=== PATIENT | female | born 1950 | race Caucasian/White ===

== ENCOUNTER → 2017-03-15 | Outpatient (CLI) | payer OTHER | LOC: FIMAGING 15:01 | PROVIDERS: ATTEND Family Medicine | DX: M79.605 Pain in left leg (principal) ==

== ENCOUNTER → 2017-03-18 | Outpatient (CLI) | payer OTHER | LOC: CIMAGING 14:39 | PROVIDERS: ATTEND Family Medicine | DX: R05 Cough (principal) | CPT/HCPCS: 71020-PO; 86618-90; 86698-90 ==

== ENCOUNTER 2017-04-01 09:01 | Observation (INO) | payer OTHER ==
--- NOTE | 2017-04-01 09:58 | CPEKG ---
Heart Rate: 85 RR Interval: 706 P-R Interval: 192 QRSD Interval: 100 QT Interval: 396 QTC Interval: 471 P [place]: 21 QRS [place]: -47 T Wave [place]: -12 EKG Severity - ABNORMAL ECG - EKG Impression: SINUS RHYTHM EKG Impression: PROBABLE INFERIOR INFARCT, AGE INDETERMINATE EKG Impression: ABNRM R PROG, CONSIDER ASMI OR LEAD PLACEMENT Electronically Signed By: Migdalia Cox 01-Apr-2017 10:11:43
[2017-04-01] MEDS ORDERED: ASPIRIN 81 MG CHEWABLE TAB PO ONE (10:05)
--- NOTE | 2017-04-01 10:11 | EDPHY ---
H & P Stated Complaint: left arm feels heavy, nausea Time Seen by Provider: 04/01/17 09:32 HPI/ROS: CHIEF COMPLAINT: Left arm pain History by patient HISTORY OF PRESENT ILLNESS: 67-year-old woman presents with several weeks of vague symptoms of feeling "like my vessels are santiago" and worried about her cholesterol being high. She has had lots of fatigue, episodes of heat intolerance and an episode of nausea last night and then this morning after being awake for about an hour she developed a heavy squeezing pain in her left arm. This did not involve her chest. There is no associated shortness of breath. She took a baby aspirin and she still has some mild symptoms. Patient states that she has been feeling poorly for about a month and that her symptoms are intermittent but not necessarily exertional. She often feels better after having a bowel movement. She has had an extensive lab workup by her primary care physician involving a chest x-ray and an ultrasound of her left lower extremity because she was having swelling in that leg. She has never been a smoker. She has a history of high triglycerides. She is obese. She has history of elevated blood pressure. Her father had angioplasty in his 70s. REVIEW OF SYSTEMS: As in HPI, and all other systems reviewed and are negative Source: Patient - Medical/Surgical History Hx Asthma: No Hx Chronic Respiratory Disease: No Hx Diabetes: No Hx Cardiac Disease: No Hx Renal Disease: No Hx Cirrhosis: No Hx Alcoholism: No Hx HIV/AIDS: No Hx Splenectomy or Spleen Trauma: No Other PMH: hysterectomy, fibromyalgia, hyperthyroidism - Family History Significant Family History: Heart disease - Social History Smoking Status: Never smoked - Physical Exam Exam: General Appearance: Alert, morbidly obese, nontoxic-appearing. Eyes: Pupils equal and round no pallor or injection. ENT, Mouth: Mucous membranes moist. Respiratory: Normal, effort, lungs are clear to auscultation. No wheezes, rales or rhonchi. Cardiovascular: Regular rate and rhythm. S1, S2, no murmurs, gallops, rubs appreciated Gastrointestinal: Abdomen is soft and nontender, no masses, bowel sounds normal. Back: No CVA tenderness, no bony tenderness Neurological: Awake, alert and oriented x 3, no pronator drift, normal gait, no pronator drift Skin: Warm and dry, no rashes. Musculoskeletal: Neck is supple nontender. No deformities. Extremitie:s full range of motion, no edema, multiple varicose veins left leg, DP pulses 2+ and equal bilaterally, PT pulses 2+ and equal bilaterally Psychiatric: Patient has slightly flat affect, there is no agitation. Constitutional: Initial Vital Signs Temperature (C) 36.7 C 04/01/17 09:09 Heart Rate 99 04/01/17 09:09 Respiratory Rate 16 04/01/17 09:09 Blood Pressure 158/86 H 04/01/17 09:09 O2 Sat (%) 96 04/01/17 09:09 O2 Delivery Mode Room Air Allergies/Adverse Reactions: codeine Allergy (Verified 04/01/17 09:12) Home Medications: Medication Instructions Recorded Naproxen 11/16/14 Synthroid 11/16/14 Medical Decision Making - Diagnostics EKG Interpretation: Normal sinus rhythm at a rate of 85 with normal axis, normal intervals, Q-waves in the inferior leads and poor R-wave progression and nonspecific ST changes but no evidence of acute ischemia. There is no old EKG available for comparison. Imaging Results: Imaging Impressions Chest X-Ray 04/01/17 10:06 Impression: Mild cardiac silhouette enlargement, with no evidence of congestive heart failure or focal infiltrate. ED Course/Re-evaluation: 67-year-old woman presents with left arm pain and squeezing feeling as well as several weeks of various nonspecific symptoms. Initially on arrival here she was having some arm pain. She was given an aspirin. Her symptoms resolved. Her blood pressure is noted to be elevated she has multiple cardiac risk factors. ECG was done which showed sinus rhythm a rate 85 with normal axis and Q-waves in the inferior and anterior leads concerning for prior [place]. There is no old EKG for ex comparison. First troponin was negative less ruling out acute ischemia. Given her multiple risk factors her vague symptoms and abnormal EKG she will be admitted to the main hospital for further evaluation and treatment. I discussed the case with Sonam, on-call for the hospitalist who accepts the patient for admission to the PCU under Dr. Avila. Patient understands and is agreeable to this plan. - Data Points Laboratory Results: Laboratory Results 04/01/17 11:15 04/01/17 11:50 04/01/17 04/01/17 04/01/17 11:50 11:15 11:15 WBC 5.67 10^3/uL 10^3/uL (3.80-9.50) RBC 5.15 10^6/uL 10^6/uL (4.18-5.33) Hgb 17.0 g/dL H g/dL (12.6-16.3) Hct 48.4 % H % (38.0-47.0) MCV 94.0 fL fL (81.5-99.8) MCH 33.0 pg pg (27.9-34.1) MCHC 35.1 g/dL g/dL (32.4-36.7) RDW 12.2 % % (11.5-15.2) Plt Count 196 10^3/uL 10^3/uL (150-400) MPV 9.4 fL fL (8.7-11.7) Neut % (Auto) 48.9 % % (39.3-74.2) Lymph % (Auto) 42.0 % % (15.0-45.0) [place] % (Auto) 6.7 % % (4.5-13.0) Eos % (Auto) 1.1 % % (0.6-7.6) Baso % (Auto) 0.9 % % (0.3-1.7) Nucleat RBC Rel Count 0.0 % % (0.0-0.2) Absolute Neuts (auto) 2.78 10^3/uL 10^3/uL (1.70-6.50) Absolute Lymphs (auto) 2.38 10^3/uL 10^3/uL (1.00-3.00) Absolute Monos (auto) 0.38 10^3/uL 10^3/uL (0.30-0.80) Absolute Eos (auto) 0.06 10^3/uL 10^3/uL (0.03-0.40) Absolute Basos (auto) 0.05 10^3/uL 10^3/uL (0.02-0.10) Absolute Nucleated RBC 0.00 10^3/uL 10^3/uL (0-0.01) Immature Gran % 0.4 % % (0.0-1.1) Immature Gran # 0.02 10^3/uL 10^3/uL (0.00-0.10) Sodium 141 mEq/L mEq/L REJ (134-144) Potassium 4.1 mEq/L mEq/L REJ (3.5-5.2) Chloride 106 mEq/L mEq/L REJ (97-110) Carbon Dioxide 23 mEq/l mEq/l REJ (22-31) Anion Gap 12 mEq/L mEq/L REJ (8-16) BUN 14 mg/dL mg/dL REJ (7-23) Creatinine 0.6 mg/dL mg/dL REJ (0.6-1.0) Estimated GFR > 60 REJ Glucose 105 mg/dL H mg/dL REJ (70-100) Calcium 9.6 mg/dL mg/dL REJ (8.5-10.4) Total Bilirubin 1.0 mg/dL mg/dL (0.1-1.4) AST 41 IU/L IU/L (14-46) ALT 61 IU/L H IU/L (9-52) Alkaline Phosphatase 83 IU/L IU/L (38-126) Troponin I < 0.012 ng/mL ng/mL REJ (0-0.034) Total Protein 6.8 g/dL g/dL (6.3-8.2) Albumin 4.3 g/dL g/dL (3.5-5.0) Medications Given: Discontinued Medications Aspirin (Aspirin) 324 mg PO EDNOW ONE Stop: 04/01/17 10:06 Last Admin: 04/01/17 10:12 Dose: 180 mg Sodium Chloride (Ns) 1,000 mls @ 0 mls/hr IV ONCE ONE PRN Reason: Wide Open Stop: 04/01/17 11:28 Last Admin: 04/01/17 11:31 Dose: 1,000 mls Departure - Departure Condition: Good Referrals: Rick Vincent MD [Primary Care Provider] - As per Instructions
[2017-04-01 11:22] LABS: % IMMATURE GRANULYOCYTES 0.4 % (0.0-1.1); ABSOLUTE IMMATURE GRANULOCYTES 0.02 10^3/uL (0.00-0.10); ADD DIFF? NO; ADD MORPH? NO; ADD SCAN? NO; ATYPICAL LYMPHOCYTE FLAG 0 (0-99); FRAGMENT RBC FLAG 0 (0-99); HEMATOCRIT 48.4 % (38.0-47.0); LEFT SHIFT FLG 0 (0-99); LIPEMIA HEMOLYSIS FLAG 90 (0-99); MEAN CELL HEMOGLOBIN CONCENTR. 35.1 g/dL (32.4-36.7); MEAN PLATELET VOLUME 9.4 fL (8.7-11.7); PLATELET CLUMPS FLAG 10 (0-99); PLATELET COUNT 196 10^3/uL (150-400); RED BLOOD CELL COUNT 5.15 10^6/uL (4.18-5.33); RED CELL DISTRIBUTION WIDTH 12.2 % (11.5-15.2)
[2017-04-01] MEDS ORDERED: NS 1,000 ML IV ONE (11:27)
[2017-04-01 12:20] LABS: ALANINE AMINOTRANSFERASE 61 IU/L (9-52); ALBUMIN 4.3 g/dL (3.5-5.0); ALKALINE PHOSPHATASE 83 IU/L (38-126); ANION GAP 12 mEq/L (8-16); ASPARTATE AMINOTRANSFERASE 41 IU/L (14-46); CALCIUM 9.6 mg/dL (8.5-10.4); CARBON DIOXIDE 23 mEq/l (22-31); CHLORIDE 106 mEq/L (97-110); CREATININE 0.6 mg/dL (0.6-1.0); GLOMERULAR FILTRATION RATE > 60; GLUCOSE 105 mg/dL (70-100); POTASSIUM 4.1 mEq/L (3.5-5.2); SODIUM 141 mEq/L (134-144); TOTAL PROTEIN 6.8 g/dL (6.3-8.2)
[2017-04-01 12:35] LABS: TROPONIN I < 0.012 ng/mL (0-0.034)
[2017-04-01] MEDS ORDERED: PROMETHAZINE HCL 25 MG TAB PO PRN (14:25)
[2017-04-01] MEDS ORDERED: ACETAMINOPHEN 325 MG TAB PO PRN (14:25)
[2017-04-01] MEDS ORDERED: ONDANSETRON 4 MG/2 ML VIAL IVP PRN (14:25)
[2017-04-01] MEDS ORDERED: ONDANSETRON DISINTEGRATING 4 MG TAB PO PRN (14:25)
[2017-04-01] MEDS ORDERED: PROMETHAZINE HCL 25 MG/ML INJ IVP PRN (14:25)
[2017-04-01] MEDS ORDERED: CYCLOBENZAPRINE PO PRN (17:30)
[2017-04-01] MEDS ORDERED: CLOBETASOL 0.05% 15 GM CRTUBE TP SCH (17:30)
--- NOTE | 2017-04-01 17:34 | PDGENHP ---
History and Physical - Chief Complaint Acute arm pain - History of Present Illness primary care provider: Dr. Rick Vincent HPI: 67-year-old female presents with acute arm pain located in the lateral left arm with associated shoulder discomfort, generalized fatigue, heat intolerance, nausea, intermittent left lower extremity and bilateral axillary edema. Patient reports onset of the actual pain was on the day prior to presentation and it has been characterized as squeezing and duration persistent thereafter. She did receive aspirin in the emergency department and the pain has been somewhat alleviated. the other symptoms including her fatigue been present since early spring when the patient experienced what she describes as a viral-like illness lasting approximately 5 weeks. After that experience, the patient reports that her exercise tolerance was significantly reduced, she began experiencing worsening intermittent edema and fullness in her left lower extremity, and then her heat intolerance began this summer. She is seen her primary care provider 3 times for these issues lower extremity ultrasound was ordered which demonstrated no deep venous thrombosis. History Information - Allergies/Home Medication List Allergies/Adverse Reactions: codeine Allergy (Verified 04/01/17 09:12) Home Medications: Levothyroxine [Synthroid 88 mcg (*)] 88 mcg PO DAILY23 11/16/14 [Last Taken 12/13] Naproxen Sodium [Aleve 220 MG (*)] 220 mg PO DAILY PRN 11/16/14 [Last Taken 11/12] Clobetasol 0.05% [Temovate Cream] 15 ania TP Q21D 04/01/17 [Last Taken 03/31/17] Cyclobenzaprine [Cyclobenzaprine HCl] 1 tab PO DAILY PRN 04/01/17 [Last Taken 3 Weeks Ago] Famotidine [Pepcid 20 MG (*)] 20 mg PO DAILY 04/01/17 [Last Taken 03/31/17] Herbals/Supplements -Info Only 1 ea PO DAILY 04/01/17 [Last Taken 03/31/17] I have personally reviewed and updated: family history, medical history, social history, surgical history - Past Medical History hypertension Additional medical history: Fibromyalgia which manifested as fatigue and swelling. Hypothyroidism. Hypertriglyceridemia. Obesity - Surgical History Reports: hysterectomy - Family History Additional family history: father with coronary artery disease at age 70 - Social History Smoking Status: Never smoked Alcohol Use: None Drug Use: None Additional social history: she is independent in her ADLs comma exercise tolerance has been reduced recently, she has not experienced any arm pain when she ambulates up stairs Review of Systems ROS: 10pt was reviewed & negative except for what was stated in HPI & below Constitutional: Reports: malaise, weakness Gastrointestinal: Reports: nausea Muscolosketal: Reports: other ( arm pain) Physical Exam Temp Pulse Resp BP Pulse Ox 36.9 C 91 17 153/96 H 93 04/01/17 17:22 04/01/17 17:22 04/01/17 17:22 04/01/17 17:22 04/01/17 17:22 Constitutional: no apparent distress, chronically ill appearing, obese, No uncomfortable Eyes: PERRL, anicteric sclera, EOMI Ears, Nose, Mouth, Throat: moist mucous membranes, hearing normal, ears appear normal, no oral mucosal ulcers Cardiovascular: regular rate and rhythym, systolic murmur ( 1/6 systolic murmur at the sternum), No tachycardia, No edema Respiratory: no respiratory distress, no rales or rhonchi, clear to auscultation Gastrointestinal: normoactive bowel sounds, soft, non-tender abdomen, no palpable masses, distension ( morbidly obese) Skin: other ( dry, no rash on upper chest) Musculoskeletal: other ( full range of motion left upper extremity with minimal pain elicited in the shoulder with active range of motion, mild tenderness to palpation over the left triceps muscle, full range of motion left elbow and left wrist without any pain) Neurologic: AAOx3, sensation intact bilaterally, No weakness Psychiatric: interacting appropriately, not anxious, not encephalopathic, thought process linear Lab Data & Imaging Review 04/01/17 11:15 04/01/17 11:50 WBC 5.67 10^3/uL (3.80-9.50) 04/01/17 11:15 RBC 5.15 10^6/uL (4.18-5.33) 04/01/17 11:15 Hgb 17.0 g/dL (12.6-16.3) H 04/01/17 11:15 Hct 48.4 % (38.0-47.0) H 04/01/17 11:15 MCV 94.0 fL (81.5-99.8) 04/01/17 11:15 MCH 33.0 pg (27.9-34.1) 04/01/17 11:15 MCHC 35.1 g/dL (32.4-36.7) 04/01/17 11:15 RDW 12.2 % (11.5-15.2) 04/01/17 11:15 Plt Count 196 10^3/uL (150-400) 04/01/17 11:15 MPV 9.4 fL (8.7-11.7) 04/01/17 11:15 Neut % (Auto) 48.9 % (39.3-74.2) 04/01/17 11:15 Lymph % (Auto) 42.0 % (15.0-45.0) 04/01/17 11:15 [place] % (Auto) 6.7 % (4.5-13.0) 04/01/17 11:15 Eos % (Auto) 1.1 % (0.6-7.6) 04/01/17 11:15 Baso % (Auto) 0.9 % (0.3-1.7) 04/01/17 11:15 Nucleat RBC Rel Count 0.0 % (0.0-0.2) 04/01/17 11:15 Absolute Neuts (auto) 2.78 10^3/uL (1.70-6.50) 04/01/17 11:15 Absolute Lymphs (auto) 2.38 10^3/uL (1.00-3.00) 04/01/17 11:15 Absolute Monos (auto) 0.38 10^3/uL (0.30-0.80) 04/01/17 11:15 Absolute Eos (auto) 0.06 10^3/uL (0.03-0.40) 04/01/17 11:15 Absolute Basos (auto) 0.05 10^3/uL (0.02-0.10) 04/01/17 11:15 Absolute Nucleated RBC 0.00 10^3/uL (0-0.01) 04/01/17 11:15 Immature Gran % 0.4 % (0.0-1.1) 04/01/17 11:15 Immature Gran # 0.02 10^3/uL (0.00-0.10) 04/01/17 11:15 D-Dimer 0.69 ug/mLFEU (0.00-0.50) H 04/01/17 11:50 Sodium 141 mEq/L (134-144) 04/01/17 11:50 Potassium 4.1 mEq/L (3.5-5.2) 04/01/17 11:50 Chloride 106 mEq/L (97-110) 04/01/17 11:50 Carbon Dioxide 23 mEq/l (22-31) 04/01/17 11:50 Anion Gap 12 mEq/L (8-16) 04/01/17 11:50 BUN 14 mg/dL (7-23) 04/01/17 11:50 Creatinine 0.6 mg/dL (0.6-1.0) 04/01/17 11:50 Estimated GFR > 60 04/01/17 11:50 Glucose 105 mg/dL (70-100) H 04/01/17 11:50 Calcium 9.6 mg/dL (8.5-10.4) 04/01/17 11:50 Total Bilirubin 1.0 mg/dL (0.1-1.4) 04/01/17 11:50 AST 41 IU/L (14-46) 04/01/17 11:50 ALT 61 IU/L (9-52) H 04/01/17 11:50 Alkaline Phosphatase 83 IU/L (38-126) 04/01/17 11:50 Troponin I < 0.012 ng/mL (0-0.034) 04/01/17 11:50 Total Protein 6.8 g/dL (6.3-8.2) 04/01/17 11:50 Albumin 4.3 g/dL (3.5-5.0) 04/01/17 11:50 TSH 0.527 uIU/mL (0.465-4.680) 04/01/17 11:50 Visualized and Interpreted Chest x-ray results: Yes Chest X-Ray results: no infiltrate Visualized and Interpreted EKG results: Yes EKG Interpretation: Positive for: other ( EKG demonstrating Q-wave inferiorly as well as V2 through V6 within normal sinus mechanism) Assessment & Plan Assessment: 67-year-old female presents with acute left arm pain in the setting of chronic fatigue an EKG abnormalities Plan: 1. Arm pain. Acute, new problem this provider, further workup indicated. Potential etiologies include pulmonary embolism, unstable angina equivalent, musculoskeletal cause, fibromyalgia. -my suspicion is the most likely etiology is either fibromyalgia or undiagnosed inflammatory myalgia, but given her morbid obesity, cardiac risk factors, and vague decline over the past 6 months will further investigate from a cardiopulmonary standpoint -D-dimer weakly positive, rule out pulmonary embolism with CT angiogram -get echocardiogram given diffuse Q-waves on EKG -get treadmill stress test in a.m. -repeat troponin level now -send CRP, ESR, CPK -send lipid panel, hemoglobin A1c -if all the above are unremarkable, would recommend the patient follow up with a road conductor as an outpatient for further treatment and receive nonsteroidal anti-inflammatory medications for discomfort in the interim 2. Morbid obesity. Most likely contributing to patient's overall deconditioning , the patient and I have discussed that weight loss and increased physical activity be helpful for her symptoms but she should have the above-mentioned cardiopulmonary evaluation prior to making this recommendation 3. Lower extremity edema. Chronic, secondary to varicose veins, outside records reviewed including 03/15/2017 ultrasound demonstrating no DVT Diet. Cardiac, NPO in a.m. Prophylaxis. High risk patient, Lovenox 40 Code. Full Disposition. Anticipated discharge is 04/02/2017, pending further workup as outlined above. I have discussed patient's presentation with Sonam Kong, hospitalist, she has signed out the patient to me for evaluation at the beginning of my shift.
[2017-04-01] MEDS ORDERED: CYCLOBENZAPRINE 10 MG TAB PO PRN (17:36)
[2017-04-01] MEDS: METOPROLOL TARTRATE 25 MG TAB PO SCH ×2 (17:39→22:01)
[2017-04-01 20:33] LABS: HEMOGLOBIN A1C 5.5 % (4.0-6.0)
[2017-04-01 20:33] LABS: HEMATOCRIT 49.3 % (38.0-47.0)
[2017-04-01] MEDS ORDERED: IOPAMIDOL (ISOVUE 370) 100 ML BTL IV ONE (20:45)
[2017-04-01 20:55] LABS: TROPONIN I < 0.012 ng/mL (0-0.034)
[2017-04-01] MEDS ORDERED: MELATONIN 3 MG TAB PO SCH (21:00)
[2017-04-01 21:16] LABS: C-REACTIVE PROTEIN < 5.0 mg/L (<10.0)
[2017-04-01] MEDS: ENOXAPARIN 100 MG/ML SYR SC SCH (22:01)
[2017-04-02] MEDS ORDERED: LEVOTHYROXINE 88 MCG TAB PO SCH
[2017-04-02 05:12] LABS: % IMMATURE GRANULYOCYTES 0.3 % (0.0-1.1); ABSOLUTE IMMATURE GRANULOCYTES 0.02 10^3/uL (0.00-0.10); ADD DIFF? NO; ADD MORPH? NO; ADD SCAN? NO; ATYPICAL LYMPHOCYTE FLAG 0 (0-99); FRAGMENT RBC FLAG 0 (0-99); HEMATOCRIT 44.2 % (38.0-47.0); HEMOGLOBIN 15.3 g/dL (12.6-16.3); LEFT SHIFT FLG 0 (0-99); LIPEMIA HEMOLYSIS FLAG 90 (0-99); MEAN CELL HEMOGLOBIN 33.2 pg (27.9-34.1); MEAN CELL HEMOGLOBIN CONCENTR. 34.6 g/dL (32.4-36.7); MEAN CELL VOLUME 95.9 fL (81.5-99.8); MEAN PLATELET VOLUME 9.5 fL (8.7-11.7); PLATELET CLUMPS FLAG 0 (0-99); PLATELET COUNT 198 10^3/uL (150-400); RED BLOOD CELL COUNT 4.61 10^6/uL (4.18-5.33); RED CELL DISTRIBUTION WIDTH 12.5 % (11.5-15.2)
[2017-04-02 05:32] LABS: ALANINE AMINOTRANSFERASE 56 IU/L (9-52); ALBUMIN 4.3 g/dL (3.5-5.0); ALKALINE PHOSPHATASE 75 IU/L (38-126); ANION GAP 11 mEq/L (8-16); ASPARTATE AMINOTRANSFERASE 41 IU/L (14-46); BILIRUBIN,TOTAL 1.2 mg/dL (0.1-1.4); CALCIUM 9.8 mg/dL (8.5-10.4); CARBON DIOXIDE 22 mEq/l (22-31); CHLORIDE 107 mEq/L (97-110); CHOLESTEROL 185 mg/dL (140-220); CHOLESTEROL/HDL RATIO 3.63 RATIO (1.00-4.44); CREATININE 0.6 mg/dL (0.6-1.0); GLOMERULAR FILTRATION RATE > 60; GLUCOSE 103 mg/dL (70-100); HIGH DENSITY LIPOPROTEIN 51 mg/dL (40-85); LDL/HDL RATIO 2.08 RATIO (1.00-3.22); LOW DENSITY LIPOPROTEIN 106 mg/dL (80-100); NON-HIGH DENSITY LIPOPROTEIN 134 mg/dL (90-129); SODIUM 140 mEq/L (134-144); TOTAL PROTEIN 6.8 g/dL (6.3-8.2); TRIGLYCERIDE 144 mg/dL (35-135); VERY LOW DENSITY LIPOPROTEINS 28 mg/dL (8-25)
[2017-04-02 05:43] LABS: TROPONIN I < 0.012 ng/mL (0-0.034)
[2017-04-02] MEDS ORDERED: Herbals/Supplements -Info Only PO SCH (09:00)
[2017-04-02] MEDS ORDERED: ENOXAPARIN 40 MG/0.4 ML SYR SC SCH (09:00)
[2017-04-02] MEDS ORDERED: FAMOTIDINE 20 MG TAB PO SCH (09:00)
[2017-04-02] MEDS ORDERED: ASPIRIN EC 325 MG TAB PO SCH (09:00)
[2017-04-02] MEDS: METOPROLOL TARTRATE 25 MG TAB PO SCH (10:08)
[2017-04-02] MEDS: ENOXAPARIN 100 MG/ML SYR SC SCH (10:09)
--- NOTE | 2017-04-02 13:59 | ECHO ---
[id number] + + [id number] : : [place] [address] : : [phone] + + Adult Echocardiographic Report + ------+ :Name: IVELISSE REINA Radha Date: 04/02/2017 07:28 AM : : Hospital Admission Number: [id number] Locatio n: 223: :: 1950 Gender: Female Height: 65 in : :Age: 67 yrs Race: WH Weight: 225 lb : :Reason For Study: Fatigue/eval for cardiomyopathy/PE : : BSA: 2.1 meters 2 : + ------+ MMode/2D Measurements \T\ Calculations IVSd: 1.1 cm LVIDd: 5.0 cm EDV(Teich): 118.9 ml Ao root diam: 3.5 cm LVPWd: 1.1 cm LA dimension: 4.2 cm Normal Measurement Values: + + :LVIDd (3.5-5.7cm) IVSd (0.6-1.1cm) LVPWd (0.6-1.1cm) Aortic Root (2.0-3.7cm)Left Atrium (1.5-4.0cm): :LV Vol(d) (76-115ml) LV Vol(s) (29-48ml) Ejec Fraction (50-65%)PV Abel (0.6- 1.2m/s) TV Abel (0.4-1.0m/s) : :MV E Abel (0.8-1.0m/s)MV A Abel (0.3-1.0m/s)LVOT Abel (0.7-1.2m/s) Asc Ao Abel ( 0.9-1.8m/s) : + + Doppler Measurements \T\ Calculations MV E max abel: 64.7 cm/sec Ao V2 max: 114.0 cm/sec MV A max abel: 92.3 cm/sec Ao max P.2 mmHg MV E/A: 0.70 Left Ventricle The left ventricle is normal in size. There is normal left ventricular wall thickness. Left ventricular systolic function is normal. Ejection Fraction = 60-65%. No regional wall motion abnormalities noted. Atria The left atrial size is normal. Right atrial size is normal. The interatrial septum is intact with no evidence for an atrial septal defect. Mitral Valve The mitral valve is normal in structure and function. There is no evidence of mitral valve prolapse. There is no mitral valve stenosis. Tricuspid Valve Normal tricuspid valve. There is trace tricuspid regurgitation. Aortic Valve The aortic valve opens well. There is no aortic stenosis. There is no aortic insufficiency. Pulmonic Valve The pulmonic valve is not well visualized. There is no pulmonic valvular regurgitation. Great Vessels The aortic root is normal size. Pericardium/Pleural There is no pericardial effusion. There is a fat pad seen. Conclusion A complete two-dimensional transthoracic echocardiogram was performed (2D, M-mode, Doppler and color flow Doppler). The study was technically difficult. Left ventricular systolic function is normal. Ejection Fraction = 60-65%. There is a fat pad seen. Final Reading Physician: Jesu Roger MD electronically signed on 04/02/2017 01:58 PM Ordering Physician: Kwadwo Maradiaga Performed By: Padmini Chaidez RDCS
[2017-04-02 14:40] VITALS: BP 130/80; PULSE 70; RESP 14; TEMP 97.6; O2SAT 92
--- NOTE | 2017-04-02 17:03 | GDS ---
[f rep st] DISCHARGE SUMMARY DISCHARGE DIAGNOSES: 1. Left triceps pain, most likely due to muscle strain. 2. Morbid obesity. 3. Chronic lower extremity edema from venous stasis and varicose veins. 4. Single subsegmental possible pulmonary embolism seen on CT angio of the chest. CONSULTANTS: None. HOSPITAL COURSE BY PROBLEM: Left posterior arm pain: The patient was admitted to the hospital due to concerns for acute coronary syndrome. Serial troponins were done that have been negative. Mike g the time of my exam, the patient's pain seems very atypical for cardiac chest pain. Her left delt oid is tender to palpation. She has had 3 negative troponins. Her pain is not exertional. During her workup, she did have an elevated D-dimer. Subsequently, a CT angio of the chest was done that s howed a single subsegmental left lower lobe possible pulmonary embolism. I do not think that this f inding is the cause for her pain. Per the most recent chest guidelines, I do not feel that needs to be treated with anticoagulation as long as she does not have a lower extremity deep venous thrombos is. At the time of this dictation, the lower extremity Doppler is pending. PHYSICAL EXAM: VITAL SIGNS: On the day of discharge, blood pressure 138/80, pulse is 70, respirato ry rate 14, O2 saturation 92% on room air. GENERAL: No acute distress. HEART: S1, S2. LUNGS: C lear. ABDOMEN: Soft. EXTREMITIES: The patient has tenderness to palpation over the left triceps. DIAGNOSTICS DONE THIS HOSPITAL STAY: Echocardiogram: Ejection fraction 60% to 65%. No significant valvular disease. CT angio of the chest, refer to report. Lower extremity Doppler study is pending. DISCHARGE MEDICATIONS: Please refer to discharge medication reconciliation [facility] for details. DISCHARGE INSTRUCTIONS: The patient will be discharged from the hospital, where she should follow u p with her primary care provider in the next week. It would not be unreasonable for her to have out patient stress test; however, I think the cause of this triceps pain is very unlikely to be cardiac. /[id number]/MODL
[2017-04-21] MEDS ORDERED: CLOBETASOL 0.05% 15 GM CRTUBE TP SCH (09:00)
== END 2017-04-02 16:57 | disposition home or self-care (01) ==
LOC: CED 09:01 → CEDHOLD 13:29 → F2W 16:30
PROVIDERS: ADMIT Internal Medicine; ATTEND Family Medicine
DX: M79.622 Pain in left upper arm (principal); R94.31 Abnormal electrocardiogram [ECG] [EKG]; R91.8 Other nonspecific abnormal finding of lung field; I83.90 Asymptomatic varicose veins of unspecified lower extremity; E66.01 Morbid (severe) obesity due to excess calories; E78.1 Pure hyperglyceridemia; R53.83 Other fatigue; M79.7 Fibromyalgia; R60.0 Localized edema; E03.9 Hypothyroidism, unspecified; Z82.49 Family history of ischemic heart disease and other diseases of the circulatory system; Z68.38 Body mass index [BMI] 38.0-38.9, adult
CPT/HCPCS: 71020; 71275; 93005; 93306; 93970; G0378; J1650; Q9967; 80048-PO; 80053-PO; 84443-PO; 84484-PO; 85025-PO; 85378-PO

== ENCOUNTER 2017-04-20 01:22 | Inpatient (IN) | payer OTHER ==
--- NOTE | 2017-04-20 01:26 | EDPHY ---
H & P Time Seen by Provider: 04/20/17 01:25 HPI/ROS: CHIEF COMPLAINT: discomfort due to fluid develop in the abdominal area HISTORY OF PRESENT ILLNESS: this 67-year-old female has had a difficult past few months with waxing waning symptoms that have been difficult for her PCP to characterize as well as leading to recent hospital admission some 2 weeks ago. At around 10:00 p.m. tonight some 4 hours after dinner she started having trouble. It was a area of discomfort in the lower abdomen both right and left, though right seemed to be more so probably some that was progressive over the ensuing 3-4 hours before she got here. 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 Evidently some 6 months ago while she had chronic venous insufficiency changes and varicosities of the left leg becoming larger intermittently with prior to that the legs being equal size. However over the last 2 months she has had episodes of left leg swelling only, however that is not every day. This has led her PCP at the end of February on the to have a study done which included a negative duplex scan of the left lower leg. At the same token when she was admitted for left arm discomfort this past April 02 she was found to have a positive D-dimer at 690 and subsequently had a subsegmental PE noted posteriorly vs scarring. At that time she has been admitted for left triceps pain and was found to have some palpable discomfort of this triceps area, thus it was not felt that the CT scan findings were jewelry sales representative or causative of the triceps pain. Furthermore she had an atypical history for coronary disease. Echocardiogram was normal at that admission, though had poor R-wave progression across precordium and Q-waves inferiorly which, up until the Echocardiogram, had a suggested old prior MIs. As to tonight, after the 10 o'clock onset of the moderate abdominal discomfort with the sense of abdominal swelling and the left leg swelling she attempted to fall asleep 11. She is in bed for about 45 minutes and could not fall asleep. Insomnia has been a recurrent problem for her in the 1st place. This achy, moderate pain did not radiate nor intensify, though it did persist. She did not try her ASA or Pepcid. It was not worse lying flat, nor improved with getting up. Furthermore, at around 8:00 p.m. she had a sense of moderate, right jaw discomfort which led later to bilateral jaw discomfort - this was a new problem for her. This remained in the jaw, did not radiate to the neck or chest or arms. It is distinctly better now than it was earlier, but continues at this point in time. She did not notice anything particular made it worse or better. She did not have any shortness of breath laying supine. Of note, is that she has been having decreased exercise tolerance over the last 2 months. There may have been some associated shortness of breath but no diaphoresis or nausea When she got out of bed at 0000, she noted an occipital JOSEPH, this too is mostly gone. Similar episode to this, complete with headache and mild jaw discomfort, about a week ago. Subsided spontaneously after an hour and a half. Episodically over the last few months she has been taking Pepcid for "heartburn ". Also noted decreased exercise tolerance. She was seen earlier on April 19 by her PCP for a 2 week follow-up status post hospitalization and was noted by her PCP to have abdominal tenderness and some discussion as to whether she had a gallbladder problem. An ultrasound is tentative for this coming Tuesday as there is prior authorization issues that need to be clarified. I reviewed the H&P as well as discharge summary from the April 01 admission. On the discharge summary that talk of doing a duplex scan of the left lower leg as a follow-up to the one on March 15. This was a negative bilateral study. PE risk factor-travel in early February via plane. Venous changes in the left leg, though chronic. Aortic dissection risk factors-none Cardiac risk factors include hypertension and obesity. Recently elevated triglycerides though cholesterol was okay. No family history of early-onset coronary disease. Nonsmoker. REVIEW OF SYSTEMS: Constitutional: No fever, no chills. Eyes: No discharge. ENT: No sore throat. Cardiovascular: No chest pain, no palpitations. Respiratory: No cough, shortness of breath, or wheezing. Gastrointestinal: No nausea vomiting or diarrhea. No abdominal pain. Genitourinary: No hematuria or frequency. Musculoskeletal: No back pain. No leg discomfort. Skin: No rashes. Neurological: No headache. 10 point ROS otherwise negative Source: Patient Exam Limitations: No limitations - Medical/Surgical History Hx Asthma: No Hx Chronic Respiratory Disease: No Hx Diabetes: No Hx Cardiac Disease: No Hx Renal Disease: No Hx Cirrhosis: No Hx Alcoholism: No Hx HIV/AIDS: No Hx Splenectomy or Spleen Trauma: No Other PMH: hysterectomy, fibromyalgia, hypothyroidism - Family History Significant Family History: No pertinent family hx (Father of congestive heart failure. Mother is currently alive in her late 80s) - Social History Smoking Status: Never smoked Alcohol Use: None Drug Use: None - Physical Exam Exam: General Appearance: Alert, no distress. Afebrile. Normal phonation. No respiratory distress. Obese. Eyes: Pupils equal and round no pallor or injection. No icterus ENT, Mouth: Mucous membranes moist. Pharynx without erythema or exudate. TM Clear. Neck: No adenopathy. Supple. No JVD. Trachea in midline. Respiratory: There are no retractions, lungs are clear to auscultation. Chest wall: Nontender to palpation. No crepitus. Cardiovascular: Regular rate and rhythm. Abdomen: Soft, large panniculus. There is tenderness present in the right upper quadrant when compared to left upper as well as right lower quadrants. The latter 2 are nontender. There are no masses, bowel sounds normal. Femoral pulses equal. Neurological: Ox3. No motor weakness. Sensation intact. Gait nl. Skin: Warm and dry, no rashes. Musculoskeletal: No joint swelling. Extremities: There is trace edema in the left lower leg compared to the right. The left lower leg girth is increased compared to the right. There is chronic venous insufficiency changes in chronic varicosities present left lower leg. Homans sign negative on the left though she is tender on the right to palpation of the gastroc area. No cords. Psychiatric: Normal affect. Constitutional: Initial Vital Signs Temperature (C) 36.9 C 04/20/17 01:36 Heart Rate 93 04/20/17 01:36 Respiratory Rate 16 04/20/17 01:36 Blood Pressure 175/100 H 04/20/17 01:36 O2 Sat (%) 96 04/20/17 01:36 O2 Delivery Mode Room Air Allergies/Adverse Reactions: codeine Allergy (Verified 04/20/17 01:34) Home Medications: Medication Instructions Recorded Cyclobenzaprine [Flexeril 10 MG 5 mg PO HS PRN 04/20/17 (*)] Fluconazole [Diflucan (*)] 150 mg PO ONCE PRN 04/20/17 Levothyroxine [Synthroid 88 mcg 88 mcg PO DAILY@04/20/17 (*)] Lisinopril [Zestril 5 mg (*)] 5 mg PO DAILY 04/20/17 guaiFENesin [Mucinex 600 MG (*)] 600 mg PO DAILY 04/20/17 Medical Decision Making - Diagnostics EKG Interpretation: EKG: Interpreted by me contemporaneously. Rhythm: Normal sinus rhythm. Heart rate 88, first-degree block QTc 460 QRS: normal STT segment: normal T Waves: Normal Q waves: There are Q-waves inferiorly and pre and F. Suspicious for old inferior OK. Poor progression across precordium. When compared to old EKG from April 01 this is unchanged. Summary: Normal Ekg EKG with findings suspicious for old prior inferior and anterior MIs. No acute ischemia. Single PVC noted Imaging Results: Imaging Impressions Abdomen CT 04/20/17 02:52 Impression: 1. Probable mesenteric lymphadenitis with peripancreatic and portacaval mild adenopathy and mesenteric stranding. 2. No CT evidence of appendicitis, abscess or bowel obstruction. 3. Small hiatal hernia. Findings and recommendations discussed with Emergency Department physician, Dr. Dmitry Flowers, at 0415 hours on April 20, 2017. Final report concurs with initial preliminary interpretation. Chest/Thorax CTA 04/20/17 02:52 Impression: 1. No definite acute pulmonary thromboemboli. 2. No acute pulmonary disease. 3. Small hiatal hernia. Findings and recommendations discussed with Emergency Department physician, Dr. Dmitry Flowers, at 0415 hours on April 20, 2017. Final report concurs with initial preliminary interpretation. Chest x-ray: Two view chest. Interpreted by me, contemporaneously.. Films reviewed by me on the PACS system. Normal mediastinum, except for that of a borderline enlarged heart. Normal lung burk. No effusions. Heart size is borderline enlarged. No CHF. CT scan of Abdomen & Pelvis. Performed with IV contrast. Interpreted by radiologist. Films reviewed by me. Findings as follows: Some mesenteric nodes, no pancreatic swelling per se as well as normal gallbladder. Normal appendix. CT of Chest with IV Contrast. Arterial study Interpreted by Radiologist and discussed with same. Films reviewed by me on the PACS. Findings as follows : No signs of acute or prior PE. Old scar noted on the left base. No acute findings.] Imaging: Discussed imaging studies w/ scallop binder Radiologist ED Course/Re-evaluation: Initial workup was started to review possibility of coronary disease versus PE versus gastric/gallbladder disease. Her lipase is normal making pancreatitis an unlikely possibility. As the troponin, which was a 6 hour troponin, was negative, we proceeded to a CTA of the chest with CT of the abdomen. Notably LFTs are normal. EKG was unchanged from April 01. While she does have R-wave progression problems and Q-waves in 3 and F, her echocardiogram on April 01, showed normal wall motion and normal ejection fraction. Chest x-ray showed borderline heart size however, no effusion or CHF. Laboratory results as follows: Normal white count normal hemoglobin Negative lipase Negative troponin, making cardiac disease less likely Negative sed rate. Thus temporal arteritis extremely likely. Given the recent imaging some 2 weeks ago suggestive of perhaps an intercurrent subsegmental PE, placing her at high risk, a CT scan was performed. Further, abdominal CT was also ordered for the right upper quadrant tenderness and discomfort as ultrasound the less diagnostic due to her obesity. CT reviewed with radiologist. No gallbladder disease noted. Normal appendix. Normal pancreas. Some scant nodes in the mesentery to suggest mesenteric adenitis but no signs of lymphoma. Furthermore, CT of the chest was negative. Case discussed with the on-call hospitalist. Given her heart score of 4 and the jaw discomfort, I recommended a stress test. The patient will be sent the ambulance to [facility]. She was given 162 mg of aspirin to make the total 324. Differential Diagnosis: Differential diagnosis includes but is not limited to the following: ACS, myocardial infarction, pneumothorax, pleurisy, pulmonary embolus, aortic dissection, anxiety, muscle strain. - Data Points Laboratory Results: Laboratory Results 04/20/17 02:10 04/20/17 02:10 Medications Given: Trazodone HCl (Trazodone) 50 mg PO HS TOMAS Stop: 10/17/17 20:59 Last Admin: 04/20/17 20:45 Dose: Not Given Discontinued Medications Aspirin (Aspirin) 162 mg PO EDNOW ONE Stop: 04/20/17 04:56 Last Admin: 04/20/17 05:57 Dose: 162 mg Sodium Chloride (Ns) 1,000 mls @ 0 mls/hr IV ONCE ONE PRN Reason: Wide Open Stop: 04/20/17 03:04 Last Admin: 04/20/17 03:04 Dose: 1,000 mls Departure - Departure Disposition: [facility] Acute Clinical Impression: ACS (acute coronary syndrome), Jaw discomfort Condition: Fair
--- NOTE | 2017-04-20 01:45 | CPEKG ---
Heart Rate: 88 RR Interval: 682 P-R Interval: 224 QRSD Interval: 90 QT Interval: 380 QTC Interval: 460 P Garfield: 43 QRS Garfield: -40 T Wave Garfield: 42 EKG Severity - ABNORMAL ECG - EKG Impression: SINUS RHYTHM EKG Impression: VENTRICULAR PREMATURE COMPLEX EKG Impression: FIRST DEGREE AV BLOCK EKG Impression: PROBABLE INFERIOR INFARCT, AGE INDETERMINATE EKG Impression: BORDERLINE R WAVE PROGRESSION, ANTERIOR LEADS EKG Impression: When compared to prior EKG this is essentially unchanged. Electronically Signed By: Dmitry Flowers 20-Apr-2017 03:05:10
[2017-04-20 02:18] LABS: % IMMATURE GRANULYOCYTES 0.1 % (0.0-1.1); ABSOLUTE IMMATURE GRANULOCYTES 0.01 10^3/uL (0.00-0.10); ADD DIFF? NO; ADD MORPH? NO; ADD SCAN? NO; ATYPICAL LYMPHOCYTE FLAG 0 (0-99); FRAGMENT RBC FLAG 0 (0-99); HEMATOCRIT 45.4 % (38.0-47.0); HEMOGLOBIN 15.7 g/dL (12.6-16.3); LEFT SHIFT FLG 0 (0-99); LIPEMIA HEMOLYSIS FLAG 90 (0-99); MEAN CELL HEMOGLOBIN 32.8 pg (27.9-34.1); MEAN CELL HEMOGLOBIN CONCENTR. 34.6 g/dL (32.4-36.7); MEAN CELL VOLUME 94.8 fL (81.5-99.8); PLATELET CLUMPS FLAG 0 (0-99); PLATELET COUNT 198 10^3/uL (150-400); RED BLOOD CELL COUNT 4.79 10^6/uL (4.18-5.33); RED CELL DISTRIBUTION WIDTH 12.4 % (11.5-15.2)
[2017-04-20 02:22] LABS: SEDIMENTATION RATE 7 MM/HR (0-30)
[2017-04-20 02:30] LABS: ALANINE AMINOTRANSFERASE 56 IU/L (9-52); ALBUMIN 4.3 g/dL (3.5-5.0); ALKALINE PHOSPHATASE 85 IU/L (38-126); ANION GAP 13 mEq/L (8-16); ASPARTATE AMINOTRANSFERASE 36 IU/L (14-46); BILIRUBIN,TOTAL 1.1 mg/dL (0.1-1.4); BILIRUBIN-CONJUGATED 0.4 mg/dL (0.0-0.5); BILIRUBIN-UNCONJUGATED 0.7 mg/dL (0.0-1.1); CALCIUM 9.6 mg/dL (8.5-10.4); CARBON DIOXIDE 24 mEq/l (22-31); CHLORIDE 100 mEq/L (97-110); CREATININE 0.6 mg/dL (0.6-1.0); GLOMERULAR FILTRATION RATE > 60; GLUCOSE 110 mg/dL (70-100); MAGNESIUM 1.9 mg/dL (1.6-2.3); POTASSIUM 3.9 mEq/L (3.5-5.2); SODIUM 137 mEq/L (134-144); TOTAL PROTEIN 7.1 g/dL (6.3-8.2)
[2017-04-20 02:41] LABS: TROPONIN I < 0.012 ng/mL (0.000-0.034)
[2017-04-20] MEDS ORDERED: NS 1,000 ML IV SCH (03:00)
[2017-04-20] MEDS ORDERED: NS 1,000 ML IV ONE (03:03)
[2017-04-20] MEDS ORDERED: IOPAMIDOL (ISOVUE 370) 100 ML BTL IV ONE (03:12)
[2017-04-20 03:26] LABS: COLOR YELLOW; LEUKOCYTE ESTERASE,URINE TRACE (NEGATIVE); NITRITE,URINE NEGATIVE (NEGATIVE); PH,URINE 5.5 (5.0-7.5)
[2017-04-20 03:36] LABS: RBC,URINE NONE SEEN /hpf (0-3); WBC,URINE 0-1 /hpf (0-3)
[2017-04-20] MEDS ORDERED: ASPIRIN 81 MG CHEWABLE TAB PO ONE (04:55)
[2017-04-20] MEDS ORDERED: ONDANSETRON 4 MG/2 ML VIAL IVP PRN (11:15)
[2017-04-20] MEDS ORDERED: CYCLOBENZAPRINE 10 MG TAB PO PRN (11:15)
[2017-04-20] MEDS ORDERED: ZOLPIDEM TARTRATE 5 MG TAB PO PRN (11:15)
[2017-04-20] MEDS ORDERED: ACETAMINOPHEN 325 MG TAB PO PRN (11:15)
[2017-04-20] MEDS ORDERED: hydrALAZINE 20 MG/ML VIAL IVP PRN (11:20)
--- NOTE | 2017-04-20 12:27 | GHP ---
[f rep st] HISTORY AND PHYSICAL DATE OF ADMISSION: 04/20/2017 CHIEF COMPLAINT: Jaw pain. Right upper quadrant pain. Multiple other complaints. HISTORY: Yue Ryan is a 67-year-old female, who was just discharged from our hospital 04/02, wh ere she was found to have a single subsegmental possible PE, but her lower extremity Dopplers were n egative and she was not given anticoagulation. She now re-presents to the hospital complaining of j aw discomfort. This was acute onset last night. Very severe. She felt short of breath and dizzy, and felt an impending sense of doom, so she came to the emergency room. She also complains of incre asing abdominal distention and stated when she looked in the mirror her abdomen was massive despite having lots of recent bowel movements and urination. She describes right upper quadrant and bilater al lower quadrant abdominal pain. She saw her primary care doctor yesterday who palpated her right upper quadrant and was able to elicit exquisite right upper quadrant pain and he was attempting to w orkup her gallbladder as an outpatient. She has left leg edema due to varicose veins that is up and down and no change from its usual pattern. She also complains of severe lightheadedness that cause word-finding difficulties and shaking chills. She could barely speak to the ER physician she was s o uncomfortable. She also feels like her whole system is in overdrive. She has not slept for 2 wee ks. She feels like her heart is racing. She feels like she is in a constant adrenergic state. Prieto lan she was in the hospital earlier this month she was given metoprolol while inpatient but then disc harged with a prescription for lisinopril. She states while in the hospital on metoprolol she felt great, but on the lisinopril she does not have the same benefit. PAST MEDICAL HISTORY: 1. Obesity. 2. Chronic venous stasis, specifically varicose veins of the left leg. This has been ultrasounded for DVT many times and has been negative. 3. Chronic PE which did not receive anticoagulation. 4. Fibromyalgia. 5. Recently diagnosed gluten sensitivity rash by her arterial embalmer. She has never had an EGD or co lonoscopy. PAST SURGICAL HISTORY: Hysterectomy. MEDICATIONS: Please see computer record for full detailed list. ALLERGIES: Codeine. SOCIAL HISTORY: No smoking. No alcohol. She lives alone. REVIEW OF SYSTEMS: Complete review of systems obtained. Review of systems negative regarding const itutional, HEENT, GI, pulmonary, cardiovascular, , hematology, skin, musculoskeletal, endocrine, p sych except for positives and negatives as in HPI. FAMILY HISTORY: Father had coronary artery disease in his 70s. Her mother is still alive. PHYSICAL EXAMINATION: GENERAL: Well-developed, well-nourished female in no acute distress. VITAL SIGNS: Temperature is 37.5, pulse 96, blood pressure 151/102, satting 95% on room air. HEENT: Eye examination is normal conjunctiva. Pupils react to light. ENT normal. Hearing intact. Normal te eth. Oropharynx moist. NECK: Trachea midline. No thyromegaly. CHEST: Normal respiratory effort . LUNGS: Clear to auscultation bilaterally. CARDIOVASCULAR: Regular rate and rhythm. No murmur. EXTREMITIES: Left lower extremity edema with varicose veins. No right edema. ABDOMEN: Soft, di stended. Very tender to right upper quadrant. No hepatosplenomegaly. SKIN: Warm, dry, intact wit h minimal rash. MUSCULOSKELETAL: No cyanosis or clubbing. Strength 5/5 upper and lower extremitie s. NEURO: Cranial nerves intact. Normal sensation light touch. PSYCHIATRIC: Alert and oriented x3. Normal affect. Normal judgment and insight. Normal memory. LABORATORY DATA: White count 6.82, hematocrit 45.4, platelets 198. Sodium 137, potassium 3.9, chlo ride 100, bicarb 24, BUN 12, creatinine 0.6, glucose 110. LFTs are normal. Troponin negative x2. Urinalysis is negative. EKG reviewed by me and my personal interpretation is normal sinus rhythm, s ome diffuse T-wave flattening. Chest x-ray is negative. Echocardiogram shows an ejection fraction of 60%. MEDICAL RECORD REVIEW: I reviewed her hospitalization from earlier this month. Decision was made n ot to anticoagulate for this possible pulmonary embolus as it was not convincing. Ultrasound of the legs were negative. Echo was normal as above. ASSESSMENT/PLAN: 1. Jaw pain. Will rule out ischemia. Will follow serial troponins and EKGs. Will order Lexiscan stress test for morning. 2. Right upper quadrant pain. Will check an abdominal ultrasound. 3. Gluten sensitivity rash. This was diagnosed by her current arterial embalmer. Given her associated GI symptoms, she should probably have an EGD and colonoscopy which she has never had in the past. 4. Chronic pulmonary embolus. There does not appear to be anything acute on her repeat CT scan don e today in the emergency room. Left lower extremity ultrasounds have been negative for DVT. Will c ontinue to hold off on anticoagulation. 5. Insomnia. Will give a trial of trazodone tonight. 6. Hypertension. Will hold her lisinopril. This hypertension seems to be of relatively new onset and corresponds with her symptoms of hyperadrenergic spells. If the remainder of her workup remains unremarkable, could consider a 24 hour urine for fractionated catecholamines and metanephrines whic h would be the initial screening test for pheochromocytoma in someone who is a relatively low risk p atient. She felt much better on the metoprolol and so would probably change her blood pressure medi cations to a beta madison at discharge. CODE STATUS: Full. ADMISSION STATUS: Will admit to observation. Possible discharge home tomorrow depending on clinica l course. DVT PROPHYLAXIS: She is high risk. I will place her on subcu Lovenox. /[id number]/MODL
[2017-04-20] MEDS ORDERED: traZODone 50 MG TAB PO SCH (21:00)
[2017-04-21] MEDS: LEVOTHYROXINE 88 MCG TAB PO SCH ×2 (05:50→07:10)
[2017-04-21 07:29] LABS: CHOLESTEROL 146 mg/dL (140-220); CHOLESTEROL/HDL RATIO 3.56 RATIO (1.00-4.44); HIGH DENSITY LIPOPROTEIN 41 mg/dL (40-85); LDL/HDL RATIO 2.07 RATIO (1.00-3.22); LOW DENSITY LIPOPROTEIN 85 mg/dL (80-100); NON-HIGH DENSITY LIPOPROTEIN 105 mg/dL (90-129); TRIGLYCERIDE 103 mg/dL (35-135); VERY LOW DENSITY LIPOPROTEINS 20 mg/dL (8-25)
[2017-04-21] MEDS: ENOXAPARIN 40 MG/0.4 ML SYR SC SCH (07:45)
[2017-04-21] MEDS: guaiFENesin 600 MG TAB.ER PO SCH (07:45)
[2017-04-21] MEDS: ASPIRIN EC 81 MG TAB PO SCH (07:45)
[2017-04-21] MEDS ORDERED: REGADENOSON 0.4 MG/5 ML SYR IVP ONE (09:39)
--- NOTE | 2017-04-21 09:57 | CPEKG ---
Heart Rate: 73 RR Interval: 822 P-R Interval: 204 QRSD Interval: 94 QT Interval: 400 QTC Interval: 441 P Fletcher: 61 QRS Fletcher: -4 T Wave Fletcher: 22 EKG Severity - BORDERLINE ECG - EKG Impression: SINUS RHYTHM EKG Impression: BORDERLINE T ABNORMALITIES, ANTERIOR LEADS Electronically Signed By: Cliff Kearns 21-Apr-2017 16:09:30
--- NOTE | 2017-04-21 11:05 | CPR ---
[f rep st] NONINVASIVE CARDIAC PROCEDURE REPORT PROCEDURE: Injection of Lexiscan MPI study. SUPERVISING AD TRAFFICKER: Dr. Kwadwo Woods, INDICATION FOR STRESS LEXISCAN MPI STUDY: The patient with episodes of chest pressure and jaw pain. Abnormal electrocardiogram. Unable to run on treadmill. PRE: After obtaining informed consent, the patient was placed on 12-lead electrocardiogram. Initia l EKG showing sinus rhythm, leftward axis deviation, nonspecific T-wave abnormalities in variable le ads. Patient denies any chest pain, shortness of breath, jaw pain, or symptoms suggesting of ischem ia. Blood pressure 120/80, saturation 94%. INJECTION: Patient was given Lexiscan slow IV push followed by nuclear isotope, did note after 1 mi nute of injection heart rate did increase to 93, patient did report some mild shortness of breath, b ut no chest pressure or pain or symptoms suggesting of ischemia, no significant EKG changes noted. Within 5 minutes, patient reported all symptoms subsided, heart rate returned down to 86 beats per m inute, and again, no EKG changes. Blood pressure 122/80, saturation 95%, vital signs stable. Zuleika cervantes is finishing stress MPI imaging in Nuclear Medicine at this time. IMPRESSION: 67-year-old female admitted with mild chest pressure with jaw pain, being evaluated for cardiac ischemia, noted to have abnormal electrocardiogram. No significant EKG changes noted with Lexiscan injection, reporting mild shortness of breath 1 minute post injection which subsided within 5 minutes, vital signs remained stable. MPI imaging results pending. /[id number]/MODL
--- NOTE | 2017-04-21 14:26 | SOAPPROG ---
[facility] Progress Note Assessment/Plan: Assessment/Plan: Pt seen and examined. chart reviewed. full note to follow agree with HIDA and cardiology consultation I will defer to primary service to order HIDA so as not to interfere with cardiac w/u 04/21/17 14:24 Objective: Vital Signs Temp Pulse Resp BP Pulse Ox 36.6 C 75 18 141/69 H 94 04/21/17 10:56 04/21/17 10:56 04/21/17 10:56 04/21/17 10:56 04/21/17 10:56 04/20/17 04/21/17 04/22/17 05:59 05:59 05:59 Intake Total 3600 Balance 3600 ICD10 Worksheet Patient Problems: Problems Problem Status Onset ACS (acute coronary syndrome) Acute Arm pain, lateral Acute
--- NOTE | 2017-04-21 16:17 | HOSPPROG ---
Hospitalist Progress Note Assessment/Plan: * Jaw pain -possible abnormality on stress test -d/w [facility] cardiology - they will consult -consider cardiac cath * Gallstones with RUQ pain -d/w Dr. Martin -check HIDA scan * HTN -holding lisinopril -she preferred metoprolol * Possible gluten sensitivity rash -given her GI complaints, recommend outpatient EGD/colonoscopy -no previous had colonoscopy * Chronic venous stasis with severe varicosity of LLE -US negative for DVT * Obesity BMI 37 Subjective: Feels the same Objective: Vital Signs Temp Pulse Resp BP Pulse Ox 36.6 C 74 20 127/93 H 95 04/21/17 15:47 04/21/17 15:47 04/21/17 15:47 04/21/17 15:47 04/21/17 15:47 04/20/17 04/21/17 04/22/17 05:59 05:59 05:59 Intake Total 3600 440 Balance 3600 440 - Physical Exam Constitutional: no apparent distress, appears nourished, not in pain Cardiovascular: regular rate and rhythym, no murmur, rub, or gallop Respiratory: no respiratory distress, no rales or rhonchi, clear to auscultation Gastrointestinal: normoactive bowel sounds, soft, non-tender abdomen, no palpable masses Skin: no rashes or abrasions, no fluctuance, no induration Neurologic: AAOx3, sensation intact bilaterally Psychiatric: interacting appropriately, not anxious, not encephalopathic, thought process linear ICD10 Worksheet Patient Problems: Problems Problem Status Onset ACS (acute coronary syndrome) Acute Arm pain, lateral Acute
--- NOTE | 2017-04-21 20:08 | GCON ---
[f rep st] CONSULTATION CARDIOLOGY CONSULTATION SUPERVISING INFORMATION TECHNOLOGY ASSOCIATE: Dr. Rene Soto. INDICATION FOR CARDIOLOGY CONSULTATION: Mildly abnormal nuclear stress test, episodes of jaw pain, possible preoperative cardiac evaluation. HISTORY OF PRESENT ILLNESS: The patient is a 67-year-old female with significant history of obesity, hypertension, and hyperlipidemia. She reports that she has had a difficult time since December, reporting episode with catching influenza at that time, and felt that she has not been in her right health since then. She has had a recent hospitalization between April 01 through April 02 for left arm pain. At that time, she did have negative troponins x3. Echocardiogram done at that time showing LV systolic function was normal, fat pad seen, trace TR. She did have a noted elevated D-dimer, and was further evaluated. Lower extremity ultrasound was negative for thrombus. CTA of the chest was done at that time, with a questionable pulmonary embolism which upon further evaluation was thought to be the residual of a remote thrombus which had recanalized. She reports since that discharge, she has been noticing abdominal pain, and has also been mildly hypertensive. She has been started on lisinopril, her PCP reporting significant fatigue symptoms. On April 20, she did return to the hospital, due to significant abdomen discomfort, also reporting occurring that night jaw pain that came on suddenly with no radiation to the neck or chest. Not associated with shortness of breath, nausea, or diaphoresis. Initial electrocardiogram was done, showing sinus rhythm, first- degree AV block with Q-waves in lead III and AVF, poor R-wave progression in anterior leads, premature ventricular contraction, nonspecific T-wave abnormalities in inferior lateral leads. She did undergo laboratory studies, which showed negative troponins x4. She had a CTA of the chest repeated showing no definitive acute pulmonary thrombus, no acute pulmonary disease, small hiatal hernia. Chest x-ray showed mild cardiomegaly and mild central peripheral bronchial wall thickness with no focal alveolar consolidation. Abdominal ultrasound did note cholecystitis with a 2.[address] showed no evidence of appendicitis, absence of bowel obstruction. She was admitted to the PCU overnight, and has been stable with no further jaw pain symptoms. She continues to report abdominal pain. She has been seen by Surgery. She did undergo MPI study this morning. She tolerated Lexiscan with no problems and had no significant EKG changes with the medication. MPI study did note that she had normal LV EF of 61% with no focal wall motion abnormalities, no ischemia. There was a questionable small infarct associated with the septal wall near the base of the LV as well as the inferior wall near the base. Patient reports no history of palpitations, lightheadedness, orthopnea, PND, near-syncope, or syncopal events. Denies any symptoms suggestive of TIA or CVA. She has cardiac risk factors that include age, hypertension, and hyperlipidemia. She denies any family history of coronary artery disease. Patient reports since hospitalization no further episodes of jaw pain. Reports no history of chest pressure or pain. PAST MEDICAL HISTORY: Includes: 1. Obesity. 2. Chronic venous stasis. 3. Fibromyalgia. 4. Questionable old PE has recanalized off CTA. 5. Recently diagnosed glucose sensitivity. 6. Hypertension. Hyperlipidemia. 7. Hypothyroidism. PAST SURGICAL HISTORY: Includes: Hysterectomy. FAMILY HISTORY: Patient reports no significant family history of coronary artery disease, but does state that her father did have CHF in his late 80s. SOCIAL HISTORY: She is retired, she is single, she has no children. She drank 2-4 drinks a week when she was feeling well, but has not drunk anything for the last 2-3 months. Denies any illicit drug use. ALLERGIES: Codeine. HOME MEDICATIONS: 1. Mucinex 600 mg p.o. daily. 2. Lisinopril 5 mg p.o. daily. 3. Synthroid 88 mcg p.o. daily. 4. 150 mg p.o. once p.r.n. 5. Flexeril 5 mg p.o. h.s. p.r.n. REVIEW OF SYSTEMS: A 10-point review of systems done on patient all negative except as mentioned above. PHYSICAL EXAMINATION: GENERAL APPEARANCE: Well groomed, moderately to severely obese, female. She is alert and oriented to person, place, time, and situation. Appears to be in no acute distress at this time. VITAL SIGNS: Current vital signs are blood pressure of 127/93, heart rate of 74, respirations are 20, saturating 95% on room air. Temperature of 36.6 degrees Celsius. HEENT: Head is normocephalic. Lips and tongue are pink and moist with no signs of cyanosis. Conjunctivae pink. NECK: Trachea is midline, no loss, +2 carotid pulses bilateral, no auscultated bruits, no jugular vein distention. RESPIRATORY: Lungs clear to auscultation, no rhonchi, rales or wheezes. No accessory muscle use, no intercostal muscle retraction noted. CARDIAC: Regular rate, regular rhythm, S1, S2, no S3, S4, gallops, rubs or murmur. ABDOMEN: Obese, round, mild tenderness upon palpitation of the right upper quadrant. No masses palpable. SKIN: [place], warm, dry. EXTREMITIES: No cyanosis, no clubbing, +1 peripheral edema bilateral lower extremities. VASCULAR: +2 carotids bilateral, +2 radials bilateral, +1 posterior tibial pulses bilateral. LABORATORY STUDIES: Drawn on day of admission showed WBC of 6.82, hemoglobin of 15.7, hematocrit of 45.4, platelet count of 198, ESR of 7. Sodium 137, potassium 3.9, chloride 100, CO2 24, BUN 12, creatinine 0.6, glucose 110, calcium 9.6, magnesium 1.9, total bilirubin 1.1, AST 36, ALT 56, alkaline phosphate 85. Troponin less than 0.012 x 4. ProBNP 41. Total protein 7.1, albumin 4.3, lipase 192. Lab work drawn today shows triglycerides 103, cholesterol 146, LDL 85, HDL 41, TSH 0.592. STUDIES: Electrocardiogram as mentioned above. Chest x-ray as mentioned above. Abdominal CT as mentioned above. CTA as mentioned above. Myocardial perfusion imaging showed normal LV ejection fraction at 61%, no focal wall motion abnormalities, no ischemia, small infarction associated with septal wall near the base of the left ventricle as well as inferior lateral wall near the base. Previous echocardiogram done on 04/02/2017 showing normal LV size and wall motion, EF estimated between 60 and 65%, atriums normal size, trace TR. ASSESSMENT AND PLAN: 1. Abnormal MPI study: Have reviewed MPI imaging with Dr. Soto, with the agreement that possible small infarction, but no ischemia has been noted. This is a low cardiovascular risk stress test. At this time, will place patient on metoprolol tartrate, discontinue her lisinopril. Also, patient has also been started on aspirin therapy. Will work on secondary risk prevention. LDL was 85 , ideal goal for patient would be less than 70. Consideration starting statin therapy, this could be done as an outpatient, after surgery surgery for cholecystectomy if necessary. As for risk of upcoming surgery, due to her multiple comorbidities, this places the patient at a higher risk, but her stress test is very low risk, and there is currently no current cardiac contraindication for her not to proceed if necessary. Would recommend that she take the metoprolol tartrate all way up to the day of surgery, and resume it postoperatively. If aspirin is stopped for surgery, it should be resumed postoperatively when deemed safe by surgery. 2. Hypertension: The patient has been noted to be hypertensive, she does report that she did not like taking her lisinopril and self discontinued it. She was noted to be hypertensive on admission, with blood pressures as high as 175/100. She has p.r.n. dose of hydralazine, will start her on metoprolol tartrate, as mentioned above. 3. Hyperlipidemia: As mentioned above, her most recent fasting lipid panel does not show significant hyperlipidemia. Her LDL is 85, would recommend she be started on statin therapy with goal of getting LDL less than 70. Can hold off until she is seen in outpatient setting, after surgery if is deemed necessary. 4. Gallstones: Potentially patient is scheduled for HIDA scan tomorrow, she is being seen by surgery. 5. Chronic venous stasis: Has had a recent ultrasound of lower extremities showing no deep venous thrombosis. Thank you for this consultation. Will be glad to follow along with you. /[id number]/MODL MTDD
[2017-04-21] MEDS: METOPROLOL TARTRATE 25 MG TAB PO SCH (20:47)
--- NOTE | 2017-04-22 03:52 | GCON ---
[f rep st] CONSULTATION HISTORY OF PRESENT ILLNESS: This is a 67-year-old woman, who was admitted to the hospital for obser vation with an onset of abdominal pain, as well as jaw pain. She had had a 3-week prior history of left arm pain. Workup was negative this current admission. Abdominal ultrasound showed cholelithia sis without signs of acute cholecystitis. Stress test did demonstrate an abnormality that has been worked up by Cardiology with 2D echogram not showing any signs of acute ischemia. The patient has o ther risk factors for surgery but has been cleared/optimized on metoprolol for a procedure. Patient 's current status is stable. PAST MEDICAL HISTORY: Includes chronic venous stasis with varicose veins and chronic PE, fibromyalg ia, and obesity. PAST SURGICAL HISTORY: The patient has had previous abdominal hysterectomy. MEDICATIONS: Please see computer record for details, but they include metoprolol just started today . ALLERGIES: Include codeine. SOCIAL HISTORY: Patient denies smoking, alcohol, or illicit drug use. REVIEW OF SYSTEMS: 12-point review of systems is only significant for jaw pain, previous arm pain, and now abdominal pain. All others are reviewed and are negative. FAMILY HISTORY: Significant for coronary disease in her father. PHYSICAL EXAMINATION: VITAL SIGNS: Patient is alert, oriented, in no distress. VITAL SIGNS: She has a temperature of 36.8, heart rate of 80, blood pressure of 135/98, saturating 97% on room air. HEENT: Sclerae are anicteric. Oropharynx is moist without lesions. NECK: Her trachea is midline. No thyromegaly, cervical or supraclavicular adenopathy. LUNGS: Clear bilaterally. HEART: Regul ar heart tones, S1 and S2, without murmurs. EXTREMITIES: Show edema of the left lower extremity wi th chronic varicosities and CVI changes. ABDOMEN: Soft. It is nondistended. She has a positive M urphy sign. No hepatosplenomegaly. EXTREMITIES: The patient has normal range of motion and muscle strength. NEURO: Nonfocal. LABORATORY STUDIES: Reviewed which show a normal white blood cell count of 6.8, normal platelet cou nt of 198. Sodium 137, potassium 3.9, chloride 100. LFTs are within normal limits. No elevation o f alkaline phosphatase or lipase. The patient's ultrasound was personally reviewed. I have reviewe d the data from her evaluations. IMPRESSION: I believe that she should undergo an evaluation further with HIDA scan for acute cholec ystitis. Differential includes acute cholecystitis, gastroenteritis, unlikely ischemia given her ca rdiac workup. PLAN: Will be for laparoscopic possible open cholecystectomy on this admission without cholangiogra m. The risks, benefits, and alternatives of surgery were outlined with the patient. The patient un derstands these. Will perform HIDA scan tomorrow. /[id number]/MODL
[2017-04-22] MEDS: LEVOTHYROXINE 88 MCG TAB PO SCH ×2 (05:41→22:14)
--- NOTE | 2017-04-22 12:15 | PDCARPN ---
Cardiology Progress Note Chief Complaint: patient reports still continues to have occasional episode of abdominal pain. Assessment/Plan: Assessment: 67-year-old female with significant have history of obesity, hypertension hyperlipidemia, and questionable old P that had recanalization that has recanalized office CTA. Admitted for abdominal and jaw pain, negative troponins x4. Abdominal ultrasound done showed cholecystitis with a 2.8 cm gallstone. Patient underwent MPI study 04/21/2017 showing normal LVEF of 61%, no focal wall motion abnormalities, no ischemia, possible small infarction associated with the septal wall near the base of the LV as well as inferior wall near the base. Reviewed nuclear images Dr. Soto, feels this is a low risk is MPI study. She did have a recent echocardiogram done 04/02/2017 showing normal LV size and wall motion, EF was estimated between 60 and 65%, atriums normal size, trace TR. Patient denies of any history of chest pressure pain. Reporting no further episodes of jaw pain since hospitalization. Started on metoprolol tartrate at 25 mg p.o. twice daily and aspirin therapy. f fasting lipid panel was 85 total cholesterol 146, triglycerides 103 HDL 41 Today, her blood pressure appears to be fairly well controlled on new dose of metoprolol. Heart rate 60s and 70s, continuous cardiac monitoring showing sinus rhythm occasional PVC, no malignant arrhythmias or pauses noted. She denies of any chest pressure, jaw pain, or symptoms suggesting of ischemia. Denies of symptoms suggesting of heart failure. Plan: 1. Abnormal MPI: Patient reports no further episodes of jaw pain chest pain. Has had troponins negative x3. MPI study showed no ischemia, but small infarction associated with septal wall near the base of the left ventricle as well as inferior lateral wall near the base. She is on aspirin therapy, have started her on metoprolol tartrate, appears to be tolerating well. MPI study consider low risk. Have discussed with patient her risk for surgery if necessary for her gallstones. She verbalized understanding is wanting to proceed. Currently no cardiac contraindication for to proceed. With recommendation of taking metoprolol up to the day of surgery and be started on postoperatively. Aspirin is discontinue for surgery, should also be restarted postoperatively. 2. Hypertension: BP appears to be well controlled on current dose of metoprolol , no hydralazine was used. Continue to monitor. 3. Hyperlipidemia: Patient's LDL was 85 yesterday, recommend goal for her would be have an LDL less than 70. Can be started on statin therapy as an outpatient. 4. Gallstones: Patient is having a HIDA scan done now. She is being seen by surgery. 5. Chronic venous stasis: Has had recent ultrasounds of lower extremities with no DVT. 04/22/17 12:51 Subjective: Patient reports no chest pressure, shortness of breath, lightheadedness, jaw pain, palpitations, orthopnea. reports positional Abdominal pain Reviewed/Discussed With: hospitalist (Dr Cristina), other (Dr Soto) Objective: Vital Signs (8 Hrs) Temp Pulse Resp BP Pulse Ox 04/22/17 08:59 36.5 C 74 14 116/92 H 94 Intake/Output (24 Hrs) 04/21/17 04/22/17 04/23/17 05:59 05:59 05:59 Intake Total 500 Balance 500 Intake: Oral (ml) 500 Other: Number of Voids Toilet 1 Result Diagrams: 04/20/17 02:10 04/20/17 02:10 - Physical Exam Constitutional: no apparent distress, obese Ears, Nose, Mouth, Throat: moist mucous membranes Cardiovascular: regular rate and rhythm, no murmurs, no rubs, no gallops, pulses symmetric bilat, No jugular vein distention Peripheral Pulses: 1+: dorsalis-pedis (R), dorsalis-pedis (L), 2+: carotid (R), carotid (L) Respiratory: other ( Lungs are clear, but diminished in bases bilateral.) Gastrointestinal: normoactive bowel sounds Skin: warm, No no edema ( +1 to 2 peripheral edema bilateral lower extremities to knees.) Neurologic: AAOx3 Psychiatric: cooperative, interactive, following commands ICD10 Worksheet Patient Problems: Problems Problem Status Onset ACS (acute coronary syndrome) Acute Arm pain, lateral Acute
[2017-04-22] MEDS: ASPIRIN EC 81 MG TAB PO SCH (12:54)
[2017-04-22] MEDS: guaiFENesin 600 MG TAB.ER PO SCH (12:54)
[2017-04-22] MEDS: METOPROLOL TARTRATE 25 MG TAB PO SCH ×2 (12:54→20:09)
[2017-04-22] MEDS: ENOXAPARIN 40 MG/0.4 ML SYR SC SCH (12:55)
--- NOTE | 2017-04-22 16:32 | HOSPPROG ---
Hospitalist Progress Note Assessment/Plan: * Jaw pain/throat tightness -fixed defect on stress test c/w possible previous OR - but low risk -medical management - metoprolol started -if recurrent episodes while on metoprolol then cardiac cath -statin tx at discharge * Gallstones -d/w Dr. Martin - meeta tomorrow * Possible gluten sensitivity rash -given her GI complaints, recommend outpatient EGD/colonoscopy -no previous had colonoscopy * Chronic venous stasis with severe varicosity of LLE -US negative for DVT * Obesity BMI 37 Subjective: No new complaints. Loves how she feels on metoprolol Objective: Vital Signs Temp Pulse Resp BP Pulse Ox 36.5 C 74 14 116/92 H 94 04/22/17 08:59 04/22/17 08:59 04/22/17 08:59 04/22/17 08:59 04/22/17 08:59 04/21/17 04/22/17 04/23/17 05:59 05:59 05:59 Intake Total 500 Balance 500 HIDA - normal filling but EF 4% d/w Dr. Martin and [facility] regarding coordinating cardiac and surgical plan tele - NSR - Time Spent With Patient Time Spent with Patient: greater than 35 minutes Time Spent with Patient: Greater than 35 minutes spent on this patients care, greater than 50% of time spent counseling, educating, and coordinating care regarding the above mentioned plan. - Physical Exam Constitutional: no apparent distress, appears nourished, not in pain Cardiovascular: regular rate and rhythym, no murmur, rub, or gallop Respiratory: no respiratory distress, no rales or rhonchi, clear to auscultation Gastrointestinal: normoactive bowel sounds, soft, non-tender abdomen, no palpable masses Skin: no rashes or abrasions, no fluctuance, no induration Neurologic: AAOx3, sensation intact bilaterally Psychiatric: interacting appropriately, not anxious, not encephalopathic, thought process linear ICD10 Worksheet Patient Problems: Problems Problem Status Onset ACS (acute coronary syndrome) Acute Arm pain, lateral Acute
[2017-04-22] MEDS ORDERED: guaiFENesin 600 MG TAB.ER PO ONE (20:15)
[2017-04-23 05:16] LABS: % IMMATURE GRANULYOCYTES 0.2 % (0.0-1.1); ABSOLUTE IMMATURE GRANULOCYTES 0.01 10^3/uL (0.00-0.10); ADD DIFF? NO; ADD MORPH? NO; ADD SCAN? NO; ATYPICAL LYMPHOCYTE FLAG 10 (0-99); FRAGMENT RBC FLAG 0 (0-99); HEMATOCRIT 43.1 % (38.0-47.0); HEMOGLOBIN 14.8 g/dL (12.6-16.3); LEFT SHIFT FLG 0 (0-99); LIPEMIA HEMOLYSIS FLAG 90 (0-99); MEAN CELL HEMOGLOBIN 33.1 pg (27.9-34.1); MEAN CELL HEMOGLOBIN CONCENTR. 34.3 g/dL (32.4-36.7); MEAN CELL VOLUME 96.4 fL (81.5-99.8); MEAN PLATELET VOLUME 9.9 fL (8.7-11.7); PLATELET CLUMPS FLAG 0 (0-99); PLATELET COUNT 189 10^3/uL (150-400); RED BLOOD CELL COUNT 4.47 10^6/uL (4.18-5.33); RED CELL DISTRIBUTION WIDTH 12.3 % (11.5-15.2)
[2017-04-23 05:37] LABS: ANION GAP 14 mEq/L (8-16); CALCIUM 9.6 mg/dL (8.5-10.4); CARBON DIOXIDE 19 mEq/l (22-31); CHLORIDE 107 mEq/L (97-110); CREATININE 0.6 mg/dL (0.6-1.0); GLOMERULAR FILTRATION RATE > 60; GLUCOSE 99 mg/dL (70-100); POTASSIUM 4.2 mEq/L (3.5-5.2); SODIUM 140 mEq/L (134-144)
[2017-04-23] MEDS ORDERED: BUPIVACAINE 0.5% 30 ML SDV ONE (07:16)
[2017-04-23] MEDS ORDERED: LIDOCAINE 1% 300 MG/30 ML SDV ONE (07:16)
[2017-04-23] MEDS: guaiFENesin 600 MG TAB.ER PO SCH ×2 (07:48→22:49)
[2017-04-23] MEDS ORDERED: MIDAZOLAM 2 MG/2 ML VIAL IVP ONE (08:10)
--- NOTE | 2017-04-23 08:13 | PDANEPAE ---
ANE History of Present Illness hida scan with 4% ejection fraction, s/f lap meeta ANE Past Medical History - Cardiovascular History Hx Hypertension: Yes Hx Coronary Artery / Peripheral Vascular Disease: Yes Cardiovascular History Comment: was not treating her HTN. low risk thallium scan, but maybe small fixed defect. hx DVT/?PE - Pulmonary History Hx Oxygen in Use at Home: No Hx Sleep Apnea: No Sleep Apnea Screening Result - Last Documented: Positive - Neurologic History Neurologic History Comment: fibromyalgia - Endocrine History Hx Diabetes: No Hypothyroid: Yes - Chronic Pain History Chronic Pain: No ANE Review of Systems - Exercise capacity METS (RN): 3 METS ANE Patient History - Allergies Allergies/Adverse Reactions: codeine Allergy (Verified 04/20/17 01:34) - Home Medications Home Medications: Cyclobenzaprine [Flexeril 10 MG (*)] 5 mg PO HS PRN 04/20/17 [Last Taken Unknown ] Fluconazole [Diflucan (*)] 150 mg PO ONCE PRN 04/20/17 [Last Taken 04/19/17] Levothyroxine [Synthroid 88 mcg (*)] 88 mcg PO DAILY@23 04/20/17 [Last Taken ] Lisinopril [Zestril 5 mg (*)] 5 mg PO DAILY 04/20/17 [Last Taken 04/19/17 2.5MG] guaiFENesin [Mucinex 600 MG (*)] 600 mg PO DAILY 04/20/17 [Last Taken 04/19/17] - NPO status NPO Status: no food or drink >8 hours NPO Since - Liquids (Date): 04/23/17 NPO Since - Liquids (Time): 00:00 NPO Since - Solids (Date): 04/23/17 NPO Since - Solids (Time): 00:00 - Anes Hx Anes Hx: post operative nausea Hx Anesthesia Complications (with details): 27 years ago - Smoking Hx Smoking Status: Never smoked - Alcohol Use Alcohol Use: None - Family Anes Hx Family Anes Hx: none ANE Labs/Vital Signs - Labs Result Diagrams: 04/23/17 03:34 04/23/17 03:34 - Vital Signs Blood Pressure: 112/57 Heart Rate: 68 Respiratory Rate: 14 O2 Sat (%): 96 Height: 167.64 cm Weight: 103.2 kg ANE Physical Exam - Airway Neck exam: FROM Mallampati Score: Class 1 Mouth exam: normal dental/mouth exam - Pulmonary Pulmonary: no respiratory distress - Cardiovascular Cardiovascular: regular rate and rhythym - ASA Status ASA Status: III (BMI-37, htn, cad, pe) ANE Anesthesia Plan Anesthesia Plan: general endotracheal anesthesia (R/B/A explained and pt. agrees to proceed)
[2017-04-23] MEDS ORDERED: MIDAZOLAM 2 MG/2 ML VIAL ONE (08:15)
[2017-04-23] MEDS ORDERED: PROPOFOL/EMULSION 500 MG/50 ML BOTTLE IV ONE (08:21)
[2017-04-23] MEDS ORDERED: fentaNYL 100 MCG/2 ML INJ ONE ×2 (08:21→10:09)
[2017-04-23] MEDS ORDERED: LIDOCAINE HCL 160 MG/4 ML LTA KIT TP ONE (08:22)
[2017-04-23] MEDS ORDERED: LIDOCAINE 2% 100 MG/5 ML SYR ONE (08:23)
[2017-04-23] MEDS ORDERED: DEXAMETHASONE 4 MG/ML VIAL ONE ×2 (08:23)
[2017-04-23] MEDS ORDERED: ONDANSETRON 4 MG/2 ML VIAL ONE (08:23)
[2017-04-23] MEDS ORDERED: ROCURONIUM 50 MG/5 ML VIAL ONE (08:28)
[2017-04-23] MEDS ORDERED: BUPIVACAINE/EPI 0.5% 30 ML SDV ONE (08:31)
[2017-04-23] MEDS ORDERED: PHENYLEPHRINE HCL 100 MCG/ML SYR ONE (08:38)
[2017-04-23] MEDS ORDERED: KETOROLAC 30 MG/1 ML SDV ONE (08:49)
[2017-04-23] MEDS ORDERED: SUGAMMADEX SODIUM 200 MG/2 ML VIAL IVP ONE (09:11)
[2017-04-23] MEDS ORDERED: HYDROCODONE/APAP 5/325 TAB PO PRN (09:34)
[2017-04-23] MEDS ORDERED: OXYCODONE/APAP 5/325 TAB PO PRN (09:34)
[2017-04-23] MEDS ORDERED: NALOXONE HCL 0.4 MG/ML INJ IVP PRN (09:34)
[2017-04-23] MEDS ORDERED: DEXAMETHASONE 4 MG/ML VIAL IVP PRN (09:34)
[2017-04-23] MEDS ORDERED: LABETALOL HCL 50 MG/10 ML SYR IVP PRN (09:34)
[2017-04-23] MEDS ORDERED: ALBUTEROL 3 ML DEYVIAL IH PRN (09:34)
[2017-04-23] MEDS ORDERED: PROMETHAZINE HCL 25 MG/ML INJ IVP PRN (09:34)
[2017-04-23] MEDS ORDERED: ONDANSETRON 4 MG/2 ML VIAL IVP PRN (09:34)
[2017-04-23] MEDS ORDERED: MEPERIDINE 25 MG/ML SYR IVP PRN (09:34)
[2017-04-23] MEDS ORDERED: LR 500 ML IV PRN (09:34)
[2017-04-23] MEDS ORDERED: ACETAMINOPHEN 500 MG TAB PO PRN (09:34)
[2017-04-23] MEDS ORDERED: METOCLOPRAMIDE 10 MG/2 ML VIAL IVP PRN (09:34)
[2017-04-23] MEDS ORDERED: fentaNYL 100 MCG/2 ML INJ IVP PRN (09:34)
--- NOTE | 2017-04-23 09:40 | POSTANESTH ---
Post Anesthetic Evaluation Cardiovascular Status: Normal, Stable Respiratory Status: Normal, Stable Level of Consciousness/Mental Status: Can Participate in Eval Pain Control: Adequate, Prn Tx Ordered Nausea/Vomiting Control: Adequate, Prn Tx Ordered Complications Possibly Related to Anesthesia: None Noted
--- NOTE | 2017-04-23 09:42 | POSTOPPROG ---
Post Op Note Date of Operation: 04/23/17 Surgeon: Taz Olivas Anesthesiologist: Ta Pre-op Diagnosis: cholecystitis Post-op Diagnosis: same Procedure: lap choly Findings: edematous gb, small, duct, lg stones, fatty liver Inf/Abcess present in the surg proc area at time of surgery?: No EBL: Minimal Complications: no immediate Specimen(s): gallbladder
--- NOTE | 2017-04-23 10:11 | GOP ---
[f rep st] OPERATIVE REPORT DATE OF OPERATION: 04/23/2017 SURGEON: Taz Olivas MD ANESTHESIA: General, Dr. Chappell. PREOPERATIVE DIAGNOSIS: Biliary colic/cholecystitis. POSTOPERATIVE DIAGNOSIS: Biliary colic/cholecystitis. PROCEDURE PERFORMED: Laparoscopic cholecystectomy. FINDINGS: As below. INDICATIONS: 67-year-old female admitted with symptomatic gallstones and concern for cholecystitis. She is undergoing a laparoscopic cholecystectomy at this time. Risks and benefits were explained of bleeding, infection, open conversion, bowel injury, retained stone, potential for postoperative ERCP. All questions were answered. She desires to proceed. DESCRIPTION OF PROCEDURE: General anesthesia was induced. The abdomen was preinjected with 0.5% Marcaine with epinephrine. Local anesthetic was infiltrated. An infraumbilical cutdown was created. A 10 mm trocar was placed under direct visualization. Three additional 5 mm ports were placed in the upper abdomen. The gallbladder was retracted cephalad. This was an edematous, mildly hemorrhagic structure. Both duct and artery were circumferentially encompassed confirming the critical view of safety. The duct was multiply clipped and divided with Harmonic scalpel. The artery and the gallbladder dissection was also completed with the ultrasonic dissector. The specimen was brought through the umbilical port site intact using an EndoCatch pouch. The liver was noted to be diffusely fatty in appearance. No ascites was present nor any other right upper quadrant abnormality was identified. Satisfactory hemostasis was assured. Trocars removed under direct visualization. The infraumbilical midline fascia was closed with a running Vicryl suture. The wounds were closed with Monocryl and Dermabond. The patient was taken to recovery uneventfully. /[id number]/MODL MTDD
[2017-04-23] MEDS: KETOROLAC 15 MG/1 ML SDV IVP SCH ×3 (11:41→23:03)
[2017-04-23] MEDS: METOPROLOL TARTRATE 25 MG TAB PO SCH ×2 (11:41→20:16)
--- NOTE | 2017-04-23 11:52 | SOAPPROG ---
[facility] Progress Note Assessment/Plan: Assessment: Cardiology ([facility] [place] employee communications specialist for ) 1. S/p lap cholecystectomy this am. No complications. 2. Admit with abdominal pain radiating to neck. Serial troponins have all been normal. 3. Abnormal nuclear stress imaging. Plan: 1. Outpatient follow up with [facility] to discuss further risk stratification. 04/23/17 11:50 Objective: Vital Signs Temp Pulse Resp BP Pulse Ox 36.5 C 66 22 H 94/55 L 94 04/23/17 10:25 04/23/17 10:25 04/23/17 10:31 04/23/17 10:31 04/23/17 10:31 Laboratory Results 04/23/17 03:34 04/23/17 03:34 04/22/17 04/23/17 04/24/17 05:59 05:59 05:59 Intake Total 374 804 0094 Balance 946 [id number] ICD10 Worksheet Patient Problems: Problems Problem Status Onset ACS (acute coronary syndrome) Acute Arm pain, lateral Acute
[2017-04-23] MEDS ORDERED: FUROSEMIDE 40 MG/4 ML VIAL IVP ONE (14:02)
--- NOTE | 2017-04-23 16:21 | HOSPPROG ---
Hospitalist Progress Note Assessment/Plan: * Jaw pain/throat tightness -fixed defect on stress test c/w possible previous [place] - but low risk -medical management - metoprolol started -if recurrent episodes while on metoprolol then cardiac cath -statin tx at discharge * Cholecystitis s/p lap meeta -advance diet * Possible gluten sensitivity rash -given her GI complaints, recommend outpatient EGD/colonoscopy -no previous had colonoscopy * Chronic venous stasis with severe varicosity of LLE -US negative for DVT -c/o abdominal distention c/w swelling of abd wall -IV lasix x 1 * Obesity BMI 37 Subjective: Feels much better already. She can already tell that taking out gallbladder will help. Still abd wall swelling that is quite bothersome. Objective: Vital Signs Temp Pulse Resp BP Pulse Ox 36.9 C 74 16 118/70 94 04/23/17 16:05 04/23/17 16:05 04/23/17 16:05 04/23/17 16:05 04/23/17 16:05 Laboratory Results 04/23/17 03:34 04/23/17 03:34 04/22/17 04/23/17 04/24/17 05:59 05:59 05:59 Intake Total 180 826 8584 Output Total 750 Balance 815 728 7923 - Physical Exam Constitutional: no apparent distress, appears nourished, not in pain Cardiovascular: regular rate and rhythym, no murmur, rub, or gallop Respiratory: no respiratory distress, no rales or rhonchi, clear to auscultation Gastrointestinal: normoactive bowel sounds, soft, non-tender abdomen, no palpable masses Skin: no rashes or abrasions, no fluctuance, no induration Neurologic: AAOx3, sensation intact bilaterally Psychiatric: interacting appropriately, not anxious, not encephalopathic, thought process linear ICD10 Worksheet Patient Problems: Problems Problem Status Onset ACS (acute coronary syndrome) Acute Arm pain, lateral Acute
--- NOTE | 2017-04-23 22:04 | SOAPPROG ---
SOAP Progress Note Assessment/Plan: Assessment:doing great. min pain. benedict reg diet. when stood up, umbil incision superficially - this was reapproximated with external 3-0 nylon sutures without difficulty. no other postop op issues. ok to dc in am from surgical standpoint. will see back in 7-10 days for suture removal. Plan: 04/23/17 22:02 Objective: Vital Signs Temp Pulse Resp BP Pulse Ox 36.4 C 74 16 107/66 92 04/23/17 19:23 04/23/17 20:16 04/23/17 19:23 04/23/17 20:16 04/23/17 19:23 Laboratory Results 04/23/17 03:34 04/23/17 03:34 04/22/17 04/23/17 04/24/17 05:59 05:59 05:59 Intake Total 862 374 2937 Output Total 1125 Balance 214 658 4644 ICD10 Worksheet Patient Problems: Problems Problem Status Onset ACS (acute coronary syndrome) Acute Arm pain, lateral Acute
[2017-04-23] MEDS: LEVOTHYROXINE 88 MCG TAB PO SCH (22:49)
[2017-04-24 05:01] LABS: ANION GAP 11 mEq/L (8-16); CALCIUM 9.5 mg/dL (8.5-10.4); CARBON DIOXIDE 23 mEq/l (22-31); CHLORIDE 100 mEq/L (97-110); CREATININE 0.9 mg/dL (0.6-1.0); GLOMERULAR FILTRATION RATE > 60; GLUCOSE 121 mg/dL (70-100); POTASSIUM 4.1 mEq/L (3.5-5.2); SODIUM 134 mEq/L (134-144)
[2017-04-24] MEDS: KETOROLAC 15 MG/1 ML SDV IVP SCH ×2 (05:44→12:23)
--- NOTE | 2017-04-24 07:44 | SOAPPROG ---
SOAP Progress Note Assessment/Plan: Assessment:no overnight issues. no pain. avss. abd soft. umby incision clean and intact. doing well. dispo per primary service. Plan: 04/23/17 22:02 04/24/17 07:43 Objective: Vital Signs Temp Pulse Resp BP Pulse Ox 36.6 C 59 L 14 102/60 87 L 04/24/17 03:55 04/24/17 03:55 04/24/17 03:55 04/24/17 03:55 04/24/17 03:55 Laboratory Results 04/23/17 03:34 04/24/17 03:48 04/23/17 04/24/17 04/25/17 05:59 05:59 05:59 Intake Total 700 3570 Output Total 1535 Balance 700 5 ICD10 Worksheet Patient Problems: Problems Problem Status Onset ACS (acute coronary syndrome) Acute Arm pain, lateral Acute
[2017-04-24 08:29] VITALS: TEMP 98.4; O2SAT 92
[2017-04-24] MEDS: METOPROLOL TARTRATE 25 MG TAB PO SCH (09:51)
[2017-04-24] MEDS: guaiFENesin 600 MG TAB.ER PO SCH (09:52)
[2017-04-24 12:18] VITALS: BP 107/79; PULSE 55; RESP 16
--- NOTE | 2017-04-24 16:49 | GDS ---
[f rep st] DISCHARGE SUMMARY DISCHARGE DIAGNOSES: 1. Acute cholecystitis status post laparoscopic cholecystectomy. 2. Jaw and throat tightness, possible anginal equivalent. 3. Hypertension. 4. Abdominal bloating. 5. Obesity (BMI 37). 6. Chronic venous stasis with severe varicosity of the left lower extremity. HISTORY: The patient is a 67-year-old female who came in with multiple complaints, one of which was jaw and throat tightness. She was admitted to workup for possible anginal equivalent. HOSPITAL COURSE: EKG and troponins remained negative. She got a stress test which did show a fixed defect, consistent with a possible previous [place]. This scan was reviewed with Cardiology who saw her in consultation. They felt this was overall a low risk scan and would not need to go immediately t o cardiac catheterization. They were attempting medical management and placed on metoprolol, aspiri n and a statin drug. If she continues to have recurrent episodes of jaw pain, jaw and throat tightn ess while on medical management, cardiac catheterization will be pursued at that time. She has not had recurrence of the symptoms throughout her hospital stay. She was cleared by Cardiokali dumas to proceed with gallbladder surgery. She also complained of right upper quadrant pain and was found to have extensive gallstones. Genera l Surgery was consulted and they proceeded with a laparoscopic cholecystectomy, and did find an infl annemarie gallbladder during surgery. The surgery went without complication. She is eating a regular diet at the time of discharge and already feels an improvement in her right upper quadrant pain. She also complains of a vague abdominal bloating. She thinks it is fluid, although I do not see any evidence of edema. She also recently saw a drum dyeing machine operator who told her she had a gluten sensitivity rash. She has never before had a colonoscopy. She had a CT scan of the abdomen and pelvis that was unremarkable. I would allow her to recover from her cholecystectomy and see to what degree that relieves her sympt oms. If she has persistence of abdominal bloating, recommend outpatient EGD and colonoscopy. Testi ng for celiac disease can be done at that time. DISCHARGE MEDICATIONS: Please see computer record for full detailed list. New medications: 1. Aspirin 81 mg p.o. daily. 2. Metoprolol 25 mg p.o. twice daily. 3. Atorvastatin 20 mg p.o. daily. DISCHARGE INSTRUCTIONS: 1. Follow up with Dr. Olivas post cholecystectomy in 7-10 days for suture removal. 2. Outpatient EGD and colonoscopy for further evaluation of abdominal bloating. 3. Follow up with Cardiology, [facility]. 4. If recurrent chest, throat or jaw pain or pressure, return to medical care for possible cardiac catheterization. TIME SPENT: Greater than 30 minutes time was spent on arranging this discharge. The patient was seen and examined by me on the day of discharge. /[id number]/MODL
== END 2017-04-24 13:31 | disposition home or self-care (01) | DRG 418 ==
LOC: CED 01:22 → CEDHOLD 04:55 → F2W 08:10 → OBSVTOIN 04-21 16:14
PROVIDERS: ADMIT Student in an Organized Health Care Education/Training Program; ATTEND Internal Medicine
PROC: 0FT44ZZ Resection of Gallbladder, Percutaneous Endoscopic Approach (ICD-10-PCS; principal; 2017-04-23 08:00)
DX: K80.12 Calculus of gallbladder with acute and chronic cholecystitis without obstruction (principal); I20.9 Angina pectoris, unspecified; R14.0 Abdominal distension (gaseous); I27.82 Chronic pulmonary embolism; G47.00 Insomnia, unspecified; R21 Rash and other nonspecific skin eruption; E03.9 Hypothyroidism, unspecified; I83.92 Asymptomatic varicose veins of left lower extremity; E66.9 Obesity, unspecified; Z68.37 Body mass index [BMI] 37.0-37.9, adult; I10 Essential (primary) hypertension; I87.8 Other specified disorders of veins; I25.2 Old myocardial infarction
CPT/HCPCS: 71020-PO; 71275-PO; 74177-PO; 80048-PO; 80076-PO; 81003-PO; 81015-PO; 83690-PO; 83735-PO; 83880-PO; 84484-PO; 85025-PO; 85652-PO; A9500; A9537; G0378; J1100; J1650; J1885; J1940; J2001; J2250; J2370; J2405; J2704; J2785; J3010; Q9967

== ENCOUNTER → 2018-07-27 | Outpatient (CLI) | payer OTHER | LOC: BHFA 15:30 | PROVIDERS: ATTEND Internal Medicine Cardiovascular Disease | DX: I73.9 Peripheral vascular disease, unspecified (principal) ==

== ENCOUNTER → 2018-08-11 | Outpatient (CLI) | payer OTHER ==
[~2018-08-11] MED LIST: IOPAMIDOL (ISOVUE-370) 150 ML BTL IV ONE
== END ==
LOC: CIMAGING 14:30
PROVIDERS: ATTEND Physician Assistant Medical
DX: I83.893 Varicose veins of bilateral lower extremities with other complications (principal)
CPT/HCPCS: 75635; Q9967; 82565-PO

== ENCOUNTER → 2018-09-15 | Outpatient (CLI) | payer OTHER | LOC: CIMAGING 12:40 | PROVIDERS: ATTEND Surgery | DX: R10.84 Generalized abdominal pain (principal) | CPT/HCPCS: 76882-PO ==

== ENCOUNTER → 2018-09-18 | Outpatient (CLI) | payer OTHER | LOC: CLAB 11:36 | PROVIDERS: ATTEND Family Medicine | DX: M16.0 Bilateral primary osteoarthritis of hip (principal) | CPT/HCPCS: 73502-PO ==

== ENCOUNTER → 2018-12-13 | Outpatient (CLI) | payer OTHER | LOC: FIMAGING 13:29 | PROVIDERS: ATTEND Orthopaedic Surgery | DX: Z01.818 Encounter for other preprocedural examination (principal); M16.11 Unilateral primary osteoarthritis, right hip ==

== ENCOUNTER 2018-12-28 05:32 | Inpatient (IN) | payer OTHER ==
[2018-12-28] MEDS ORDERED: LR 1,000 ML IV ONE (06:05)
[2018-12-28] MEDS ORDERED: MIDAZOLAM 2 MG/2 ML VIAL IVP ONE (06:52)
[2018-12-28] MEDS ORDERED: METOPROLOL TARTRATE 25 MG TAB PO ONE (07:02)
[2018-12-28] MEDS ORDERED: MIDAZOLAM 2 MG/2 ML VIAL ONE ×2 (07:04→08:23)
[2018-12-28] MEDS ORDERED: DEXAMETHASONE 4 MG/ML VIAL IVP ONE (07:07)
[2018-12-28] MEDS ORDERED: ROPIVACAINE 0.2% 80 MG, EPINEPHrine 0.2 MG, KETOROLAC TROMETHAMINE 30 MG in SYRINGE 0 ML IU ONE (07:07)
[2018-12-28] MEDS ORDERED: POVIDONE-IODINE 20 ML in SODIUM CL IRRIG SOLUTION 500 ML IRR ONE (07:07)
[2018-12-28] MEDS ORDERED: TRANEXAMIC ACID 2,000 MG in NS 100 ML IV ONE (07:07)
[2018-12-28] MEDS ORDERED: FAMOTIDINE 20 MG TAB PO ONE (07:07)
[2018-12-28] MEDS ORDERED: TRANEXAMIC ACID 1,000 MG in NS 100 ML IV ONE (07:07)
[2018-12-28] MEDS ORDERED: ACETAMINOPHEN 325 MG TAB PO ONE (07:07)
[2018-12-28] MEDS ORDERED: ceFAZolin 2 GM/DEXTROSE 100 ML IV ONE (07:07)
--- NOTE | 2018-12-28 07:08 | PDHPUP ---
History & Physical Update H&P update statement: This history and physical update is based on an assessment of the patient which was completed after admission or registration (within 24 hours), but prior to the surgery/procedure. H&P update: H&P reviewed & patient examined, no change in patient's condition since H&P completed
[2018-12-28] MEDS ORDERED: BUPIVACAINE/EPI 0.5% 30 ML SDV ONE (07:10)
--- NOTE | 2018-12-28 07:10 | PDANEPAE ---
ANE Past Medical History - Cardiovascular History Hx Hypertension: Yes Hx Arrhythmias: Yes Hx Chest Pain: No Hx Coronary Artery / Peripheral Vascular Disease: Yes Hx CHF / Valvular Disease: No Hx Palpitations: No Cardiovascular History Comment: was not treating her HTN. low risk thallium scan, but maybe small fixed defect. hx DVT 2012, cold fingers and toes, varicose veins - Pulmonary History Hx COPD: No Hx Asthma/Reactive Airway Disease: No Hx Recent Upper Respiratory Infection: No Hx Oxygen in Use at Home: No Hx Sleep Apnea: No Sleep Apnea Screening Result - Last Documented: Positive - Neurologic History Hx Cerebrovascular Accident: No Hx Seizures: No Hx Dementia: No Neurologic History Comment: fibromyalgia - Endocrine History Hx Diabetes: Yes Endocrine History Comment: hypothyroid - Renal History Hx Renal Disorders: No - Liver History Hx Hepatic Disorders: No - Neurological & Psychiatric Hx Hx Neurological and Psychiatric Disorders: No - Cancer History Hx Cancer: No - Congenital Disorder History Hx Congenital Disorders: No - GI History Hx Gastrointestinal Disorders: No - Other Health History Other Health History: osteo arthritis, macular degeneration dry early stage - Chronic Pain History Chronic Pain: No - Surgical History Prior Surgeries: meeta 2017, hysterectomy, 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 ANE Review of Systems Review of Systems: - Exercise capacity METS (RN): 4 METS ANE Patient History - Allergies Allergies/Adverse Reactions: atorvastatin [From Lipitor] Allergy (Verified 12/18/18 12:23) Joint Pain codeine Allergy (Verified 12/18/18 12:23) Itching - Home Medications Home Medications: guaiFENesin [Mucinex 600 MG (*)] 600 mg PO DAILY 04/20/17 [Last Taken 12/27/18] Herbals/Supplements -Info Only 1 ea PO DAILY 12/11/18 [Last Taken 1 Week Ago ~] Ibuprofen [Motrin (*)] 200 mg PO TID PRN 12/11/18 [Last Taken 1 Week Ago ~] Levothyroxine [Synthroid 100 mcg (*)] 100 mcg PO DAILY06 12/11/18 [Last Taken ] Multivitamins [Multivitamin (*)] 1 each PO DAILY 12/11/18 [Last Taken 1 Week Ago ~12/21/18] Redfield-3 Fatty Acids [Fish Oil 1000 mg (*)] 1,000 mg PO DAILY 12/11/18 [Last Taken 1 Week Ago ~12/21/18] - NPO status NPO Since - Liquids (Date): 12/27/18 NPO Since - Liquids (Time): 22:00 NPO Since - Solids (Date): 12/27/18 NPO Since - Solids (Time): 22:00 - Smoking Hx Smoking Status: Never smoked - Family Anes Hx Family Hx Anesthesia Complications: none ANE Labs/Vital Signs - Vital Signs Blood Pressure: 142/90 Heart Rate: 94 Respiratory Rate: 16 O2 Sat (%): 96 Height: 165.1 cm Weight: 101.151 kg ANE Physical Exam - Airway Neck exam: decreased ROM Mallampati Score: Class 3 Mouth exam: normal dental/mouth exam - Pulmonary Pulmonary: reduced air movement - Cardiovascular Cardiovascular: regular rate and rhythym - ASA Status ASA Status: III ANE Anesthesia Plan Anesthesia Plan: spinal
[2018-12-28] MEDS ORDERED: BUPIVACAINE/DEXTROSE 7.5MG/ML 2 ML SPINAL AMP SP ONE (07:11)
[2018-12-28] MEDS ORDERED: PROPOFOL/EMULSION 500 MG/50 ML BOTTLE IV ONE (07:11)
[2018-12-28] MEDS ORDERED: CEFAZOLIN 2 GM/DEXTROSE/100 ML BAG IV ONE (07:12)
[2018-12-28] MEDS ORDERED: FAMOTIDINE 20 MG TAB ONE (07:12)
[2018-12-28] MEDS ORDERED: DEXAMETHASONE 4 MG/ML VIAL ONE (07:12)
[2018-12-28] MEDS ORDERED: ACETAMINOPHEN 325 MG TAB ONE (07:12)
[2018-12-28] MEDS ORDERED: METOCLOPRAMIDE 10 MG/2 ML VIAL ONE (07:16)
[2018-12-28] MEDS ORDERED: fentaNYL 100 MCG/2 ML INJ ONE (07:22)
[2018-12-28] MEDS ORDERED: PROPOFOL 200 MG/20 ML VIAL ONE (07:22)
[2018-12-28] MEDS ORDERED: LIDOCAINE 2% 100 MG/5 ML SYR ONE (07:51)
[2018-12-28] MEDS ORDERED: ePHEDrine SULFATE 25 MG/5 ML SYR ONE (08:44)
[2018-12-28] MEDS ORDERED: PHENYLEPHRINE HCL 100 MCG/ML SYR ONE (08:45)
[2018-12-28] MEDS ORDERED: HYDROCODONE/APAP 5/325 TAB PO PRN (09:21)
[2018-12-28] MEDS ORDERED: MEPERIDINE 25 MG/0.5 ML AMP IVP PRN (09:21)
[2018-12-28] MEDS ORDERED: ALBUTEROL 3 ML DEYVIAL IH PRN (09:21)
[2018-12-28] MEDS ORDERED: PHENYLEPHRINE HCL 100 MCG/ML SYR IVP PRN (09:21)
[2018-12-28] MEDS ORDERED: LR 500 ML IV PRN (09:21)
[2018-12-28] MEDS ORDERED: PROMETHAZINE HCL 25 MG/ML INJ IVP PRN ×2 (09:21→09:39)
[2018-12-28] MEDS ORDERED: oxyCODONE IR 5 MG TAB PO PRN (09:21)
[2018-12-28] MEDS ORDERED: ONDANSETRON 4 MG/2 ML VIAL IVP PRN ×2 (09:21→09:39)
[2018-12-28] MEDS ORDERED: METOCLOPRAMIDE 10 MG/2 ML VIAL IVP PRN ×2 (09:21→09:39)
[2018-12-28] MEDS ORDERED: NALOXONE HCL 0.4 MG/ML INJ IVP PRN (09:21)
[2018-12-28] MEDS ORDERED: HYDROmorphONE/DILAUDID 1 MG/ML INJ IVP PRN (09:21)
[2018-12-28] MEDS ORDERED: ACETAMINOPHEN 500 MG TAB PO PRN (09:21)
[2018-12-28] MEDS ORDERED: fentaNYL 100 MCG/2 ML INJ IVP PRN (09:21)
[2018-12-28] MEDS ORDERED: POLYETHYLENE GLYCOL 3350 17 GM PKT PO PRN (09:39)
[2018-12-28] MEDS ORDERED: diphenhydrAMINE 25 MG CAP PO PRN (09:39)
[2018-12-28] MEDS ORDERED: PROMETHAZINE HCL 25 MG SUPPR PR PRN (09:39)
[2018-12-28] MEDS ORDERED: ONDANSETRON DISINTEGRATING 4 MG TAB PO PRN (09:39)
[2018-12-28] MEDS ORDERED: TEMAZEPAM 15 MG CAP PO PRN (09:39)
[2018-12-28] MEDS ORDERED: DIPHENOXYLATE/ATROPINE LOMOTIL 1 TAB PO PRN (09:39)
[2018-12-28] MEDS ORDERED: BISACODYL 10 MG SUPP PR PRN (09:39)
[2018-12-28] MEDS ORDERED: LACTULOSE 20 GM/30 ML UDCUP PO PRN (09:39)
[2018-12-28] MEDS ORDERED: MAGNESIUM HYDROXIDE 30 ML UDCUP PO PRN (09:39)
--- NOTE | 2018-12-28 09:57 | POSTOPPROG ---
Post Op Note Date of Operation: 12/28/18 Surgeon: Camilo Gaffney Cash Register Operator: Lui Betancur MD, CSA Pre-op Diagnosis: R hip OA Post-op Diagnosis: same Procedure: R posterior JONO with JOSH Inf/Abcess present in the surg proc area at time of surgery?: No EBL: 100-500 (300) Drains: Hemovac
[2018-12-28] MEDS ORDERED: LR 1,000 ML IV SCH (10:00)
--- NOTE | 2018-12-28 10:14 | PDMN ---
Medical Necessity Medical necessity: Pt meets intp criteria per MD order and [facility] [place] [facility]throplasty, A-2 days, MCR IP only list. 68 y/o w/R hip OA admitted for R posterior JONO w/JOSH and post-op care.
--- NOTE | 2018-12-28 11:20 | GOP ---
[f rep st] OPERATIVE REPORT DATE OF OPERATION: 12/28/2018 SURGEON: Camilo Gaffney MD SHOE SHANKER: 1. Manolo Betancur MD. 2. Mitesh Narvaez CFA. Assistants were required for the procedure due to the complexity of the case, patient's condition, and for positioning, prepping, draping, retraction, and closure. ANESTHESIA: Spinal and IV sedation. PREOPERATIVE DIAGNOSIS: Right hip osteoarthritis. POSTOPERATIVE DIAGNOSIS: Right hip osteoarthritis. PROCEDURE PERFORMED: Right total hip replacement, posterior approach, with MAKOplasty robotic guidance. The case was complicated due to the patient's history of obesity. Extra staff, surgical instruments, and time were required for the patient transfer, positioning, draping, surgical procedure itself. FINDINGS: SPECIMENS: Femoral head x1. ESTIMATED BLOOD LOSS: 300 cc. INDICATIONS: A 68-year-old female with end-stage hip osteoarthritis. After discussion of all available approaches, the patient elected MAKOplasty robotic- assisted hip replacement through a posterior approach. The patient verbalized understanding of the risks and benefits of the procedure and signed informed consent prior to the procedure. DESCRIPTION OF PROCEDURE: Patient was seen in the holding area. Operative site was signed. Patient was taken the operating room, after smooth induction of spinal anesthesia and sedation, she was placed in the lateral decubitus position with the affected hip facing up, using the pegboard and axillary roll. The affected hip was prepped and draped in usual sterile fashion. Operative site was confirmed by signature. Time-out performed. Allergies reviewed. Antibiotics and TSA administered. Through a percutaneous approach over the iliac crest, 3 pins were placed in the ilium between the inner and outer tables , pelvic array was attached, registered, and well visualized by the robot. A 1- 2 mm incision was made centered over the posterior aspect of the greater trochanter. This was carried down through the subcutaneous tissue to the fat to identify the TFL fascia which was incised in line with the incision. Gluteus stef was bluntly split. The trochanteric bursa was taken down with Bovie, short external rotators were put on stretch, and the short external rotators and trapezoidal capsulotomy were taken in layers from their insertion sites on greater trochanter of the femur and tagged with #2 FiberWire sutures. Quadratus femoris was partially released. A Steinmann pin was placed in the superior aspect of the acetabulum and a 1/8 inch drill hole was placed in the greater trochanter, preoperative leg lengths measurement was calculated and recorded for later comparison. The hip was then dislocated. The femoral neck osteotomy was made based on pre-templated calculations and the head was excised. Acetabulum was exposed in standard fashion. The labrum was sharply excised. Ligamentum teres and acetabular fossa were excised using the Bovie. The pelvic checkpoint was attached and acetabulum was registered using the [employer] robotic arm. Sequential reaming was performed based on templated calculation, templated positioning. The appropriate sized implant was then impacted into place with the robotic arm to guide version and inclination, and seemed to have excellent secure fit. The cup was then irrigated, dried, and a liner was impacted into place. The femur was then exposed in standard fashion. Excess soft tissue was removed from the piriformis fossa using the Bovie and excess neck was removed using the box osteotome, sequential broaching was performed up to the desired size of the broach which had good fit and fill. Trial neck and stem were attached, and the hip was reduced, taken through range of motion, and found to be stable. The drill pin was placed back into the greater trochanter and found to be within the 1-2 mm of the initial leg length. Again, the hip was taken through range of motion and seemed to be stable in flexion, internal rotation, abduction, as well as extension and external rotation. The trial components were removed from the femur and the actual stem with implant was impacted into place. The trunnion was cleaned and dried. The head was impacted down to the trunnion. The wound was copiously irrigated with sterile solution using pulse lavage including in the cup and the hip was relocated, once again taken through a range of motion, and seemed to be stable in all both motions. The array pins and screws, and checkpoints were removed. The capsule and external rotators were repaired with 2 drill holes in the greater trochanter. The soft tissues were infiltrated with a joint cocktail. A drain was placed exiting distally from the TFL fascia. The wound was closed in layers with 0 PDO Quill suture in the fascia naresh, 0/2-0 Quill suture in the deep subcutaneous fat, and 3-0 Versalok in the dermis. Dermabond, sterile dressings, and silver dressing, and Mepilex were applied. The hip was placed in an abduction pillow. Patient was safely awakened and taken to recovery room in stable condition. All critical portions of procedure performed by me, Dr. Gaffney. This operative note was created by me, and I was immediately available for emergency cross-coverage at all times. DRAINS: Hemovac x1. COMPLICATIONS: None. IMPLANTS: Includes a Rachel Trident II Tritanium cluster hole acetabular shell size 48 mm with a 0-degree, 36 mm polyethylene liner, as well as a Rachel Trident Accolade II size 4 stem, 132-degree offset with a +0, 36 mm ceramic head. Copy requested to: [employer] /[id number]/MODL MTDD
[2018-12-28] MEDS: ceFAZolin 2 GM/DEXTROSE 100 ML IV SCH ×2 (13:41→22:15)
--- NOTE | 2018-12-28 14:36 | SOAPPROG ---
SOAP Progress Note Assessment/Plan: Assessment: s/p right JONO, posterior approach, Tuan assist - procedure earlier today Sciatic nerve intact Films reveal good position of the right hip prosthetic Plan: Begin d/c planning She lives alone in a multi-story town house - states she has friends that are willing to help during during the initial recovery period Continue PT efforts - posterior JONO precautions Skin check - very large pannus that has some tenuous skin Continue VTE ppx - Lovenox SC injection 40 mg once daily, SCDs, ZAK muller Continue oral pain medication - oxycodone, celebrex, flexeril, tylenol Subjective: Patient states she is feeling ok, the right hip is sore but pain is tolerable. She is planning to leave this weekend. She lives alone in a multi-story townhouse. She states that friends have offered to help her during her initial recovery. Patient denies SOB, CP, fever, chills, nausea. Objective: Vital Signs Temp Pulse Resp BP Pulse Ox 36.4 C 89 16 110/72 95 12/28/18 13:50 12/28/18 13:50 12/28/18 13:50 12/28/18 13:50 12/28/18 13:50 12/27/18 12/28/18 12/29/18 05:59 05:59 05:59 Intake Total 500 Output Total 320 Balance 180 Patient resting comfortably in bed, no acute distress. RLE: Wound dressings are clean dry and intact. Hemovac in place. Skin intact, no signs of infection. Large abdominal pannus, no signs of infection. Lower leg compartments are soft and nontender. She can actively DF and PF her feet and great toes against resistance. Grossly NVI distally. ICD10 Worksheet Patient Problems: Problems Problem Status Onset Osteoarthritis of right hip Acute ACS (acute coronary syndrome) Acute Arm pain, lateral Acute
[2018-12-28] MEDS: ACETAMINOPHEN 325 MG TAB PO SCH ×2 (16:15→22:12)
[2018-12-28] MEDS: oxyCODONE IR 5 MG TAB PO PRN (17:07)
[2018-12-28] MEDS: CYCLOBENZAPRINE 10 MG TAB PO PRN (22:12)
[2018-12-28] MEDS: FAMOTIDINE 20 MG TAB PO SCH (22:13)
[2018-12-28] MEDS: METOPROLOL TARTRATE 25 MG TAB PO SCH (22:13)
[2018-12-28] MEDS: SENNOSIDES/DOCUSATE SODIUM TAB PO SCH (22:13)
[2018-12-29] MEDS: ACETAMINOPHEN 325 MG TAB PO SCH ×3 (04:06→17:48)
[2018-12-29] MEDS: oxyCODONE IR 5 MG TAB PO PRN ×4 (04:07→17:50)
[2018-12-29] MEDS: LEVOTHYROXINE 100 MCG TAB PO SCH (05:45)
[2018-12-29] MEDS ORDERED: guaiFENesin 600 MG TAB.ER PO SCH (09:00)
--- NOTE | 2018-12-29 09:18 | SOAPPROG ---
SOAP Progress Note Assessment/Plan: Assessment: s/p right JONO, posterior approach, Tuan assist - POD 1 Sciatic nerve intact Films reveal good position of the right hip prosthetic Plan: Continue d/c planning - patient is interested in leaving tomorrow and would like home health. She lives alone in a multi-story town house - states she has friends that are willing to help during during the initial recovery period Continue PT efforts - posterior JONO precautions Skin check - very large pannus that has some tenuous skin - appears erythematous at the central portion of the pannus Continue VTE ppx - Lovenox SC injection 40 mg once daily, SCDs, ZAK hose Continue oral pain medication - oxycodone, celebrex, flexeril, tylenol Subjective: Patient states right hip is sore, but tolerable. She had difficulty sleeping secondary to feeling warm due to the SCDs and ZAK hose, soreness in the right hip. She would prefer to go home tomorrow rather than stay until Tuesday. She would like to have home health arranged to help her initially until she can begin outpatient PT. She denies SOB, CP, fever and chills. Objective: Vital Signs Temp Pulse Resp BP Pulse Ox 36.5 C 71 18 106/58 L 92 12/29/18 07:56 12/29/18 07:56 12/29/18 07:56 12/29/18 07:56 12/29/18 07:56 Laboratory Results 12/29/18 04:40 12/28/18 12/29/18 12/30/18 05:59 05:59 05:59 Intake Total 1481 Output Total 1160 Balance 321 Patient lying in bed, no acute distress. Obese body habitus. Large pannus, skin is mildly erythematous at the central portion. RLE: Wound dressings are clean, dry and intact. No signs of infection near the incision sites. Lower leg compartments are soft, minimal calf tenderness. No pain on Homans sign. She can actively DF and PF her feet and great toes against resistance. Grossly NVI distally. ICD10 Worksheet Patient Problems: Problems Problem Status Onset Osteoarthritis of right hip Acute ACS (acute coronary syndrome) Acute Arm pain, lateral Acute
[2018-12-29] MEDS: ENOXAPARIN 40 MG/0.4 ML SYR SC SCH (09:43)
[2018-12-29] MEDS: MULTIVITAMINS 1 EACH TAB PO SCH (09:44)
[2018-12-29] MEDS: METOPROLOL TARTRATE 25 MG TAB PO SCH ×2 (09:46→20:25)
[2018-12-29] MEDS: FAMOTIDINE 20 MG TAB PO SCH ×2 (09:46→20:28)
[2018-12-29] MEDS: SENNOSIDES/DOCUSATE SODIUM TAB PO SCH ×2 (09:47→20:25)
--- NOTE | 2018-12-29 14:46 | ASMTCMCOM ---
CM Note CM Note Notes: Pt is a 68 y/o female admitted for hip surgery w/ Dr. Gaffney. CM met w/ pt for dispo planning. Therapies are recommending SNF. Pt is not interested in going to SNF at this time. Pt reports that her mother went to rehab and got cdiff. Pt is able to have friends stay w/ her on Tuesday night. Pt plans on staying on the first floor for 5-6 nights. Pts bedroom is upstairs. Pt has friends that can help w/ groceries and housekeeping. CM provided pt w/ senior blue book that has the list of private duty caregivers. Pt would like to have [facility] set up. CM confirmed w/ [facility] and they have gotten Dr. Gaffney's orders. CM to follow. Plan: [facility]; PT, OT Date Signed: 12/29/2018 02:44 PM Electronically Signed By:THIERRY Montes
[2018-12-29] MEDS: CYCLOBENZAPRINE 10 MG TAB PO PRN (20:25)
[2018-12-29] MEDS: guaiFENesin 600 MG TAB.ER PO PRN (20:27)
[2018-12-30] MEDS: oxyCODONE IR 5 MG TAB PO PRN ×3 (01:31→20:25)
[2018-12-30] MEDS: ACETAMINOPHEN 325 MG TAB PO SCH ×5 (03:18→23:03)
[2018-12-30] MEDS: LEVOTHYROXINE 100 MCG TAB PO SCH (05:02)
[2018-12-30] MEDS: ENOXAPARIN 40 MG/0.4 ML SYR SC SCH (09:17)
[2018-12-30] MEDS: FAMOTIDINE 20 MG TAB PO SCH ×2 (09:28→20:13)
[2018-12-30] MEDS: MULTIVITAMINS 1 EACH TAB PO SCH (09:28)
[2018-12-30] MEDS: SENNOSIDES/DOCUSATE SODIUM TAB PO SCH (09:32)
[2018-12-30] MEDS: METOPROLOL TARTRATE 25 MG TAB PO SCH ×2 (09:33→20:12)
--- NOTE | 2018-12-30 14:36 | SOAPPROG ---
SOAP Progress Note Assessment/Plan: Assessment: 60 year female status post right posterior approach total hip arthroplasty with Tuan assistance Plan: Weight-bearing as tolerated, PT/OT Posterior hip precautions DVT prophylaxis: Lovenox 40 mg daily Incentive spirometry 10 times per hour Analgesics: Oxy, Celebrex Disposition: Home likely tomorrow after physical therapy 12/30/18 14:33 Subjective: No acute events overnight. Pain well controlled. Denies fevers chills nausea vomiting chest pain shortness of breath numbness or tingling. Work well with physical therapy Objective: Vital Signs Temp Pulse Resp BP Pulse Ox 36.7 C 78 18 112/59 L 90 L 12/30/18 11:30 12/30/18 11:30 12/30/18 11:30 12/30/18 11:30 12/30/18 11:30 Laboratory Results 12/30/18 05:29 12/29/18 12/30/18 12/31/18 05:59 05:59 05:59 Intake Total 1481 500 Output Total 1160 650 Balance 321 500 -650 Awake alert and oriented x3 He no acute distress Easy nonlabored breathing Right hip: Dressing clean dry intact no erythema drainage or signs infection Thigh and calf compartments soft compressible Sensation intact to light touch L3-S1 Motor intact EHL FHL tibialis anterior gastrocsoleus Palpable DP PT pulses - Pending Discharge Pending Discharge Within 24 Hours: Yes Pending Discharge Date: 12/31/18 Pending Discharge Time: 14:00 ICD10 Worksheet Patient Problems: Problems Problem Status Onset Osteoarthritis of right hip Acute ACS (acute coronary syndrome) Acute Arm pain, lateral Acute
[2018-12-30] MEDS: guaiFENesin 600 MG TAB.ER PO PRN (20:24)
[2018-12-31] MEDS: SENNOSIDES/DOCUSATE SODIUM TAB PO SCH ×2 (01:10→10:12)
[2018-12-31] MEDS: ACETAMINOPHEN 325 MG TAB PO SCH ×2 (05:29→09:26)
[2018-12-31] MEDS: LEVOTHYROXINE 100 MCG TAB PO SCH (05:29)
[2018-12-31 07:20] VITALS: BP 115/66
--- NOTE | 2018-12-31 08:42 | SOAPPROG ---
SOAP Progress Note Assessment/Plan: Assessment: 60 year female status post right posterior approach total hip arthroplasty with Tuan assistance Plan: Weight-bearing as tolerated, PT/OT Posterior hip precautions DVT prophylaxis: Lovenox 40 mg daily Incentive spirometry 10 times per hour Analgesics: Oxy, Celebrex Disposition: Home today after physical therapy 12/30/18 14:33 12/31/18 08:40 Subjective: No acute events. Pain well controlled. Denies fevers chills nausea vomiting chest pain shortness of breath numbness or tingling. Doing well with physical therapy. Has had a bowel movement. Ready to go home today. Objective: Vital Signs Temp Pulse Resp BP Pulse Ox 36.6 C 73 17 115/66 95 12/31/18 07:18 12/31/18 07:18 12/31/18 07:18 12/31/18 07:18 12/31/18 07:18 Laboratory Results 12/30/18 05:29 12/30/18 12/31/18 01/01/19 05:59 05:59 05:59 Intake Total 500 500 Output Total 650 Balance 500 -650 500 Awake alert and oriented x3 He no acute distress Easy nonlabored breathing Right hip: Dressing clean dry intact no erythema drainage or signs infection Thigh and calf compartments soft compressible Sensation intact to light touch L3-S1 Motor intact EHL FHL tibialis anterior gastrocsoleus Palpable DP PT pulses - Pending Discharge Pending Discharge Within 24 Hours: Yes Pending Discharge Date: 12/31/18 Pending Discharge Time: 14:00 ICD10 Worksheet Patient Problems: Problems Problem Status Onset Osteoarthritis of right hip Acute ACS (acute coronary syndrome) Acute Arm pain, lateral Acute
[2018-12-31] MEDS: ENOXAPARIN 40 MG/0.4 ML SYR SC SCH (09:19)
[2018-12-31] MEDS: METOPROLOL TARTRATE 25 MG TAB PO SCH (09:26)
[2018-12-31] MEDS: FAMOTIDINE 20 MG TAB PO SCH (09:26)
--- NOTE | 2018-12-31 09:43 | ASMTDCNOTE ---
Case Management Discharge Discharge Order Complete? Answers: Yes Patient to Obtain Answers: Independently Medications Transportation Arranged Answers: Family/Friends Faxed Final Orders Answers: Yes Notes: [facility] Agency/Facility Transfer Answers: Yes Notes: [facility] Report Printed & Faxed to Receiving Agency Family Notified Answers: Yes Notes: friend Terra Discharge Comments Notes: Patient is discharging home today with [facility] for PT. Patient declined SNF. Patient states she has friends who can help her with groceries and housekeeping. Patient has a friend coming to transport her home today. [facility] has been notified patient is discharging. No further needs. Date Signed: 12/31/2018 09:42 AM Electronically Signed By:Penny Garces LCSW
--- NOTE | 2018-12-31 09:45 | ASDISCHSUM ---
Discharge Information Plan Status:Home with Home Health Medically Cleared to Leave:12/31/2018 Discharge Date:12/31/2018 CM D/C Disposition:Home Health Service ADT D/C Disposition:Home, Routine, Self-Care Projected Discharge Date:12/29/2018 11:00 AM Transportation at D/C:Friend Discharge Delay Reason: Follow-Up Date:12/29/2018 11:00 AM Discharge Slot:1 - 8:01 am - 12:00 noon Final Diagnosis:Total hip arthroplasty Placement Information Referral Type:*Home Health Care Services Referral ID:[id number] Provider Name:[facility] Address 1:[address] [place] [address] Address 2: City:[place] Selection Factors: State:[place] Patient Contact Information Contact Name:WINTER Relationship:Friend Address: Work Phone: [facility] [place] Alternate Phone: [facility]/Zip Code:[place] Email: Financial Information Financial Class:Medicare Advantage Plans Primary Plan Desc:[employer] MEDICARE ADV Primary Plan Number:[id number] Secondary Plan Desc: Secondary Plan Number: Assessment Information [facility] CM Progress Note CM Note CM Note Notes: Pt is a 68 y/o female admitted for hip surgery w/ Dr. Gaffney. CM met w/ pt for dispo planning. Therapies are recommending SNF. Pt is not interested in going to SNF at this time. Pt reports that her mother went to rehab and got cdiff. Pt is able to have friends stay w/ her on Tuesday night. Pt plans on staying on the first floor for 5-6 nights. Pts bedroom is upstairs. Pt has friends that can help w/ groceries and housekeeping. CM provided pt w/ senior blue book that has the list of private duty caregivers. Pt would like to have [facility] set up. CM confirmed w/ [facility] and they have gotten Dr. Gaffney's orders. CM to follow. Plan: [facility]; PT, OT Date Signed: 12/29/2018 02:44 PM Electronically Signed By:THIERRY Montes Case Management Discharge Plan Note Case Management Discharge Discharge Order Complete? Answers: Yes Patient to Obtain Answers: Independently Medications Transportation Arranged Answers: Family/Friends Faxed Final Orders Answers: Yes Notes: [facility] Agency/Facility Transfer Answers: Yes Notes: [facility] Report Printed & Faxed to Receiving Agency Family Notified Answers: Yes Notes: friend Terra Otis Comments Notes: Patient is discharging home today with [facility] for PT. Patient declined SNF. Patient states she has friends who can help her with groceries and housekeeping. Patient has a friend coming to transport her home today. [facility] has been notified patient is discharging. No further needs. Date Signed: 12/31/2018 09:42 AM Electronically Signed By:Penny Garces LCSW Intervention Information
[2018-12-31] MEDS: MULTIVITAMINS 1 EACH TAB PO SCH (10:15)
[2018-12-31] MEDS: oxyCODONE IR 5 MG TAB PO PRN (13:20)
== END 2018-12-31 14:19 | disposition home or self-care (01) | DRG 470 ==
LOC: F3N 05:32
PROVIDERS: ADMIT Orthopaedic Surgery; ATTEND Orthopaedic Surgery
DX: M16.11 Unilateral primary osteoarthritis, right hip (principal); I10 Essential (primary) hypertension; E03.9 Hypothyroidism, unspecified; E66.9 Obesity, unspecified; Z68.37 Body mass index [BMI] 37.0-37.9, adult; Z95.0 Presence of cardiac pacemaker; Z87.440 Personal history of urinary (tract) infections; Z86.718 Personal history of other venous thrombosis and embolism
CPT/HCPCS: 97110-GP; 97116-GP; 97161-GP; 97166-GO; 97530-GP; 97535-GO; J0171; J0690; J1100; J1650; J1885; J2001; J2250; J2370; J2704; J2765; J2795; J3010

== ENCOUNTER → 2019-01-30 | Outpatient (CLI) | payer OTHER | LOC: CIMAGING 12:28 ==